=== PATIENT | female | born 1955 | race Caucasian/White ===

== ENCOUNTER 2018-08-03 06:57 | Inpatient (IN) ==
--- OUTSIDE RECORDS SUMMARY | 2018-08-03 07:01 | External Medical Summary | Continuity of Care Document ---
:1955 Author Name Hermann Arias Address Unavailable Unavailable , Care Team Providers Name Role Phone Fely Hernandez DO Unavailable [email or web address] Alia SINGH Unavailable Unavailable Unavailable Unavailable Unavailable Problems Asthma (493.90) (J45.909) Abnormal chest x-ray with multiple lung nodules (793.19) (R9 1.8) Allergies and Adverse Reactions Keflex TABS (Allergy) Maxzide TABS (Allergy) Medications Vitamin D TABS Refills: 0 Benadryl Allergy 25 MG Oral Capsule Refills: 0 Zantac 150 MG TABS Refills: 0 LORazepam 0.5 MG Oral Tablet Refills: 0 Omeprazole 20 MG Oral Capsule Delayed Release; TAKE 1 CAPSUL E DAILY. Refills: 0 Procedures Procedures not documented Immunizations Immunizations not documented Social History - Smoking Status Never smoker Plan of Treatment Planned Observations Planned Goals not documented Results No Known Results Results not documented
--- NOTE | 2018-08-03 08:10 | History & Physical Bridge Note ---
Date of Service August 03, 2018 History & Physical Bridge Note I have examined the patient, reviewed the History & Physical and in the interval since the performance of the History & Physical I have noted the following changes of clinical significance: no changes noted. I have explained the risk benefit and intent of the heart catheterization to the patient including the potential for catheter-based intervention such as balloon angioplasty or intracoronary stent. The patient is willing to proceed.
[2018-08-03] MEDS ORDERED: MIDAZOLAM HCL 1 MG/ML 2ML VIAL ONE (08:11)
[2018-08-03] MEDS ORDERED: fentaNYL citrate 100 MCG/2 ML VIAL ONE (08:12)
[2018-08-03] MEDS ORDERED: NiCARDipine HCL INJ 2.5 MG/ML 10 ML AMP ONE (08:12)
[2018-08-03] MEDS ORDERED: HEPARIN (PORCINE) 1000 UNIT/ML 10 ML (CATH LAB USE ONLY) ONE (08:12)
[2018-08-03] MEDS ORDERED: NITROGLYCERIN/D5W 100MCG/ML 20ML SYR ONE (08:13)
--- NOTE | 2018-08-03 09:52 | Cardiac Catheterization ---
Date of Service August 03, 2018 Cardiac Cath Report Cardiac Cath Report Procedure: 1. Coronary angiography History: This is a 62-year-old female who has been having angina. She had an abnormal exercise stress echocardiogram where her chest pain was reproduced and she had EKG changes as well as findings suggesting inferior wall ischemia. Procedure summary: After informed consent was obtained the patient was taken to the cardiac catheterization lab where access was obtained using a retrograde cylinder technique from the right radial artery. Preformed 5 Grenadian catheters were utilized for the coronary angiography. Unfortunately, I was only able to cannulate the right coronary artery from the radial approach. After multiple attempts, I was not able to cannulate the left coronary artery and therefore a right femoral approach was performed and I was successful in cannulating the left coronary artery and performing coronary angiography. Following the procedure the patient underwent coronary intervention. ACC data: AUC score 9 Start time 8:25 AM End time 9:44 AM Opening aortic pressure 101/58 Closing aortic pressure 122/59 LV pressurevalve not crossed Sedation 2 mg intravenous Versed IV fluids 75 cc normal saline Contrast 85 cc VISI Fluoroscopy time 16.4 minutes Radiation 2924 mGy DAP 23,809 cGy Right dominant system Coronary angiography: Selective injections of the right coronary artery revealed to be dominant. There is mild diffuse disease and then at the bifurcation and into the PDA branch there is a subtotaled stenosis. Selective injections of the left coronary artery revealed the left main trunk to be widely patent. Left circumflex artery has minor luminal irregularities proximally. The left circumflex artery consists of a large first marginal and a second and third marginal supplying the posterior lateral myocardium. The left circumflex artery is widely patent. The LAD is small distally. The LAD gives off several small diagonal branches. The LAD is patent. Summary: The patient has essentially single-vessel coronary artery disease at the bifurcation of the PDA from the right coronary artery. Recommendations: Coronary intervention is recommended.
[2018-08-03] MEDS ORDERED: CLOPIDOGREL BISULFATE 300 MG TAB ONE (10:24)
[2018-08-03] MEDS ORDERED: ONDANSETRON INJ 2 MG/ML 2 ML VIAL IV PRN (10:28)
[2018-08-03] MEDS ORDERED: SODIUM CHLORIDE 0.9% 1000ML 1,000 ML IV SCH (10:30)
[2018-08-03] MEDS ORDERED: LORazepam 0.5 MG TAB PO PRN (10:31)
--- NOTE | 2018-08-03 10:35 | Post Anesthesia Assessment ---
Date of Service August 03, 2018 Post Sedation Assessment Vital Signs Temp Pulse Resp BP Pulse Ox 08/03/18 07:12 36.7 C 60 18 132/73 98 Recovery Score Activity: Moves 4 extremities Respiration: Deep Breath/Cough Circulation: +/-20% PreAnes Value Consciousness: Fully Awake Oxygen Saturation: O2 needed for >90% Discharge Sedation Level of Care: Fast Track Phase II Post Sedation Plan On clinical assessment, the patient appears to have tolerated the sedation without complications. Patient is recovering as anticipated. Patient will continue to be monitored by nursing and may be discharged when sedation discharge criteria are met per below protocol. Upon Completions of procedure and additional 15 minutes continue every 5 minute vital signs and the P.A.R. score; then discharge to a Phase I or Fast Track to Phase II per the following guidelines: * Discharge Patient to appropriate Phase II area if PAR is 8 or greater or return to pre- procedure baseline. The post - procedure orders will be as directed. * If PAR score is less than 8 or not return to pre-procedure baseline then patient will follow Phase I monitoring till PAR is reached for Phase II. The Phase I may be done in procedure room or may call to secure a Phase I area. * If naloxone or flumazenil are used for reversal, hold in Phase I for continued monitoring from when last reversal dose was given for a minimum of 60 minutes or longer pending the nurse and/or physician discretion of patient condition before discharge to Phase II. Please call the Sedation Physician to re-evaluate and complete post-note for discharge to Phase II area. Do NOT discharge from procedure sedation or Phase 1 until post- sedation evaluation note is complete by procedure /sedation MD Sedation Discharge Instructions to be given to the patient at discharge to home.
--- NOTE | 2018-08-03 10:36 | Cardiac Catheterization ---
Cardiac Cath Procedure: Brief Procedure Date August 03, 2018 Pre-Procedure Diagnosis Pre-Procedure Diagnosis: Positive Stress Test AUC Score AUC Score: 7 Post-Procedure Diagnosis Post-Procedure Diagnosis: Severe CAD and Successful PCI Procedure(s) Performed Procedure(s) Performed: Coronary Angiography and Drug Eluting Stent Community Chest Officer Vignesh Bar MD Drafter Electronic(s) [place] Estimated Blood Loss Estimated Blood Loss: 15 Medication(s) Medication(s): Clopidogrel, Fentanyl, Heparin, Nicardipine, Nitroglycerin and Versed Preliminary Findings Successful PCI to distal RCA into R-PDA with single JUANA (2.25 x 18 [place]; post- dilated with 2.5 NC). Recommendations Recommendations: PCI without planned CABG Specimens Specimens: None Drains Drains: none Anesthesia moderate Procedural Complication(s) None Disposition PCU
[2018-08-03] MEDS: ACETAMINOPHEN 325 MG TAB PO PRN ×2 (11:24→20:24)
[2018-08-03] MEDS: SODIUM CHLORIDE 0.9% 1000ML 1,000 ML IV SCH ×2 (11:47→20:24)
[2018-08-03] MEDS ORDERED: Nursing to Pharmacy Communication ONE (13:12)
[2018-08-03] MEDS ORDERED: NON-FORMULARY MEDICATION (Clobetasol 1 APPLN) TOP SCH (14:00)
--- NOTE | 2018-08-03 16:16 | Cardiac Catheterization ---
Cardiac Cath Procedure Full Procedure Date August 03, 2018 Pre-Procedure Diagnosis Pre-Procedure Diagnosis: Positive Stress Test AUC Score AUC Score: 7 Post-Procedure Diagnosis Post-Procedure Diagnosis: Severe CAD and Successful PCI Procedure(s) Performed Procedure(s) Performed: Coronary Angiography and Drug Eluting Stent Associate Professor Of Art Vignesh Bar MD Aviation Safety Technician(s) [place] Estimated Blood Loss Estimated Blood Loss: 15 Medication(s) Medication(s): Clopidogrel, Fentanyl, Heparin, Nicardipine, Nitroglycerin and Versed Summary of Findings Indication: Abnormal stress test Access: 6 Fr right common femoral artery Catheters: AR-1 guide Findings: For full details of patient's coronary angiography please cath report dictated by Dr. Hyatt. Briefly, patient found to have severe single vessel disease including a 90 % stenosis involving the distal RCA/proximal right PDA. Decision to proceed with PCI. -- PCI -- Antithrombotic therapy: Heparin, clopidogrel Procedure: RCA cannulated with AR-1 guide Supervisor [employer] 50 wire passed across lesion into distal vessel PDA lesion predilated with 2.0 compliant balloon Dilated lesion stented with 2.25 x 18 mm Gurley drug-eluting stent Stent post-dilated with 2.5 noncompliant balloon IC vasodilators administered for spasm Post procedure MICHAEL 3 flow, stent well expanded with minimal residual stenosis and no apparent cardiac complications. Arterial Closure: Angio-Seal Summary: 1. Successful PCI to distal RCA into R-PDA with single JUANA (2.25 x 18 [place]; post-dilated with 2.5 NC). Recommendations: To PCU for continued monitoring Loaded with clopidogrel 600 mg in specialist employee labor relations Continue dual-antiplatelet therapy for at least 6 months Continue statin, and ASCVD risk factor modification Consult cardiac Rehab Hemodynamics Rest Ao:: 110/57/79 Final Ao: 100/58/77 LV: -- Recommendations Recommendations: PCI without planned CABG Specimens Specimens: None Radiation Exposure (mGy) 4923 Contrast (mls) 145 Fluids (cc crystalloids) Fluids (cc crystalloids): 125 Drains Drains: none Anesthesia moderate Procedural Complication(s) None Disposition PCU ACC Data: Mobile Ui Designer Cardiac Status Clinical evaluation leading to the procedure CAD Presenation: Positive Stress Test Anginal Classification: CCS III Heart Failure: No Diagnostic Physicians Name: Vignesh Bar MD Status: Elective Closure Device Percutaneous Entry Location: Femoral Closure Device: Angio-Seal Recommendations: PCI without planned CABG PCI Indication: + Stress Test Lesion Segment Name: proximal R-PDA Culprit Artery: Yes Stenosis Prior to Rx (%): 90 Chronic Total Occlusion: No IVUS: No FFR: No Pre-Procedure MICHAEL Flow: 3 Previously Treated Lesion: No Lesion Complexity: Non-High/Non-C Lesion Length (mm): 12 Thrombus Present: No Bifurcation Lesion: Yes Guidewire Across Lesion: Stenosis Post-Procedure (%): 0 Post-Procedure MICHAEL Flow: 3 Devices(s) Deployed: Yes Yes Intraprocedure Events Significant Disection: No Perforation: No
[2018-08-04] MEDS: SODIUM CHLORIDE 0.9% 1000ML 1,000 ML IV SCH (05:25)
[2018-08-04 05:56] LABS: Basophils # (auto) 0.03 K/uL (0-0.2); Basophils % (auto) 0.4 %; Eosinophils # (auto) 0.16 K/uL (0-0.5); Eosinophils % (auto) 2.3 %; Hematocrit (blood only) 39.1 % (37-47); Hemoglobin 13.6 g/dL (12.0-16.0); Immature Granulocytes # (auto) 0.02 K/uL (0.00-0.02); Immature Granulocytes % (auto) 0.3 %; Lymphocytes # (auto) 1.48 K/uL (1.2-3.4); Lymphocytes % (auto) 21.6 %; Mean Corpuscular Hgb Conc 34.8 g/dL (32-36); Mean Corpuscular Volume 86.1 fL (80-100); Mean Platelet Volume 10.4 fL (7.4-10.4); Monocytes # (auto) 0.34 K/uL (0.11-0.59); Neutrophils # (auto) 4.83 K/uL (1.4-6.5); Neutrophils % (auto) 70.4 %; Platelet Count 211 K/uL (130-400); Red Blood Count 4.54 M/uL (4.2-5.4); White Blood Count 6.86 K/uL (4.8-10.8)
[2018-08-04] MEDS ORDERED: CEROVITE ADV FORMULA TAB PO SCH (09:00)
[2018-08-04] MEDS ORDERED: ASPIRIN 81 MG ECTAB PO SCH (09:00)
[2018-08-04] MEDS ORDERED: TRIAMTERENE/HCTZ 37.5/25MG TAB PO SCH (09:00)
[2018-08-04] MEDS ORDERED: ATORVASTATIN 40 MG TAB PO SCH (09:00)
[2018-08-04] MEDS ORDERED: METOPROLOL SUCC 25MG EXT REL TAB PO SCH (09:00)
[2018-08-04] MEDS ORDERED: CLOPIDOGREL BISULFATE 75 MG TAB PO SCH (09:00)
[2018-08-04] MEDS ORDERED: CHOLECALCIFEROL 1,000 UNITS TAB PO SCH (09:00)
[2018-08-04] MEDS ORDERED: PANTOprazole 40 MG TAB PO SCH (09:00)
[2018-08-04] MEDS ORDERED: FEXOFENADINE HCL 180 MG TAB PO SCH (09:00)
[2018-08-04] MEDS ORDERED: SERTRALINE HCL 50 MG TABLET PO SCH (09:00)
[2018-08-04] MEDS: ACETAMINOPHEN 325 MG TAB PO PRN (09:11)
--- NOTE | 2018-08-04 10:48 | Discharge Summary ---
Date of Service August 04, 2018 Principal Diagnosis Principal Diagnosis 1. Chest pain 2. Abnormal exercise stress echocardiogram 3. Coronary artery disease with coronary stent placement distal right coronary artery. Discharge Exam General: no acute distress and stated age Head: normocephalic, no masses, lesions, tenderness or abnormalities Eyes: conjunctiva are pink and non-injected, sclera clear Neck: supple, no adenopathy, no bruits, normal jugular venous pulse, no hepatojugular reflux Chest: normal shape and normal respiratory effort Lungs: clear to auscultation and percussion Cardiac Exam: - regular rate & rhythm, no murmurs gallops or rubs - normal S1, normal S2 Pulses: 2(+) throughout Abdomen: abdomen soft, non-tender, no abnormal masses and no hepatosplenomegaly Musculoskeletal: no gait disturbance, no joint inflammation, no deforming arthritis Extremities: no edema and no cyanosis Neuro: grossly normal exam Discharge Data Allergies Allergy/AdvReac Type Severity Reaction Status Date / Time cephalexin [From Keflex] Allergy Verified 08/03/18 07:22 nitrofurantoin Allergy Verified 08/03/18 07:22 [From Macrobid] Consultations 08/03/18 10:30 Consult Cardiac Rehabilitation Routine Procedures Performed Operation Date: 08/03/18 08:00 Actual Procedures s Cineradiography w/Routine Exam - DO brandi Hinojosa Cath, Coronaries ONLY (no LV) - DO horacio Hinojosa Drug Eluting Stent SGl Vessel - Antoine Bar MD Ordered Studies 08/03/18 06:58 CL Cath Imgs for PACS use only Routine Hospital Course (1) Abnormal stress echocardiogram: The patient underwent a cardiac catheterization that revealed essentially single-vessel coronary artery disease with a subtotal stenosis of the distal right coronary artery at the junction of the PDA. The patient received a drug- eluting stent within the right coronary artery. She had an uneventful postoperative course and can be discharged to outpatient follow-up. (2) Stented coronary artery: Total Time Total Time Spent Total Time Spent (In Minutes): 30 minutes total time spent. 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 Discharge Diagnosis: Coronary artery disease with stent placement right coronary artery Discharge Goals: Decrease discomfort and Improve function Activity: Resume your previous activity Non-emergency contact: Cnc Operator Programmer Call non-emergency contact if: you have any medication questions, your symptoms worsen, your pain is not controlled, your pain is worsening, your pain is unusual for you, your pain is concerning for you, you have a fever, your temperature is above 100.5, your wound has increased redness, your wound has increased drainage and your wound pain has increased Follow-up/Referrals: Emilee Hernandez MD [Primary Care Provider] - Diet: Low Fat Addtl Provider Instructions: ACTIVITY RECOMMENDATIONS: Excess manipulation of the wrist should be avoided for the next 24-48 hours. * No lifting over 2 pounds (approximately a 1/2 gallon of milk) with the utilized arm for 24 hours. * No strenuous activity such as bowling or tennis for 3 days. * Keep the site of the procedure covered with a bandage for 24 hours. *You may shower the day after the procedure. Do not take a tub bath or submerge the puncture site in water for the next 3 days. *Do not operate any motorized equipment for 3 days. SPECIAL CARE INSTRUCTIONS: The site may be slightly bruised and sore following your procedure. Should any of the following occur, contact the Dr. who performed your procedure. 1. Redness/inflammation, swelling, chills, or fever, or colored drainage at procedure site within 3-7 days after your procedure. 2. Coldness, discoloration, ongoing numbness, severe pain, or swelling. Expect mild tingling of hand and tenderness at the puncture site for up to three days. If this persists beyond three days, or other symptoms develop, notify the Dr. who performed your procedure. BLEEDING: If the procedure site on your wrist begins to bleed, do not panic 1. Place 1 or 2 fingers firmly just slightly above the insertion site to stop the bleeding. You may be able to feel your pulse as you hold pressure. 2. Lift your finger after 5 minutes to see if the bleeding has stopped. 3. Once the bleeding has stopped, gently wipe the wrist area clean with a bandage. * If the bleeding from your wrist does not stop after 10 minutes, or if there is a large amount of bleeding or spurting, call 911 (do not drive yourself to the hospital). SKIN IRRITATION: * You may experience some redness and/or swelling in the area where radiation was administered. If any skin irritation occurs, please contact your family physician. FOLLOW UP VISIT: ACTIVITY RECOMMENDATIONS: It is common to feel weak and fatigue for a few days. * Do not drive or operate any motorized equipment for the next three days. * Limit stair usage (2 or 3 trips a day only) for the next three days. * Do not lift anything heavier than 10 pounds for the next three days. * Do not engage in vigorous exercise or any sports for the next five days. * You may shower the day after your procedure, but do not immerse the area for three days. Cleanse the site gently with soap and water. SPECIAL CARE INSTRUCTIONS: * You may replace the pressure dressing or band-aid the morning after the procedure. * After your procedure, it is normal to have a small bruise or small lump at the site. Examine your site daily for any change in the bruise or lump, redness, swelling, drainage or numbness. Notify your doctor if any change. BLEEDING: * If there is a small amount of bleeding at the site, lie down and apply firm pressure with a clean cloth for ten minutes. When the bleeding stops, lie quietly keeping the procedure limb straight for six hours. Notify your doctor as soon as possible. * If the bleeding does not stop after ten minutes or if there is a large amount of bleeding or spurting, call 911 immediately. Continue to lie down and hold firm pressure until help arrives. SKIN IRRITATION: * You may experience some redness and/or swelling in the area where radiation was administered. If any skin irritation occurs, please contact your family physician. FOLLOW UP VISIT: Keep any scheduled doctor appointments. Keep any scheduled doctor appointments. Prescriptions: New acetaminophen [8 Hour Pain Reliever] 650 mg tablet extended release 650 mg PO Q12H MDD 1300 PRN (Reason: fever or pain) Qty: 30 RF: 0 aspirin [Ecotrin Low Strength] 81 mg Tablet,Delayed Release (Dr/Ec) 81 mg PO QAM Qty: 100 RF: 11 pantoprazole 40 mg Tablet,Delayed Release (Dr/Ec) 40 mg PO QAM Qty: 30 RF: 5 clopidogrel 75 mg tablet 75 mg PO QAM Qty: 30 RF: 11 Continued vitamin E 100 unit Capsule 100 unit PO DAILY RF: 0 clobetasol 0.05 % Cream 1 applic TOPICAL TID RF: 0 fexofenadine [Beverley Allergy] 180 mg Tablet 180 mg PO DAILY RF: 0 sulfamethoxazole-trimethoprim 800-160 mg Tablet 1 tab PO BID RF: 0 lorazepam [Ativan] 0.5 mg Tablet 0.5 mg BUCCAL TID PRN (Reason: Anxiety) RF: 0 sertraline [Zoloft] 25 mg Tablet 25 mg PO DAILY RF: 0 triamterene-hydrochlorothiazid [Maxzide-25mg] 37.5-25 mg Tablet 1 cap PO DAILY RF: 0 cholecalciferol (vitamin D3) 1,000 unit Capsule 1,000 unit PO DAILY RF: 0 ocnotfsrrwpc-pzgsgqmq-eogmtqt Capsule 1 cap PO DAILY RF: 0 Sterling 3-6-9 Fatty Acids 400-400-200 mg Capsule 1 cap PO DAILY RF: 0 scrunrxjsar-[id number]-Ltevdiaez serr [Glucosamine Daily Complex] 1,500-400-100 mg-unit-mg Tablet 1 cap PO BID RF: 0 Mirvaso 0.33 % Gel 1 applic TOPICAL DAILY RF: 0 atorvastatin [Lipitor] 40 mg Tablet 1 tab PO DAILY RF: 0 aspirin 81 mg Tablet,Chewable 1 tab PO DAILY RF: 0 metoprolol succinate [Toprol XL] 25 mg Tablet Extended Release 24 Hr 1 tab PO DAILY RF: 0 Discontinued Prilosec OTC 20 mg Tablet,Delayed Release (Dr/Ec) 20 mg PO DAILY RF: 0 Stand-Alone Forms: [facility] Discharge Orders: Discharge Order (Routine); Ordered 08/04/18 Ordered By: Prakash Hyatt Admission Data Admit Date/Time: 08/03/18 10:00 Attending Provider: Praaksh Hyatt Admit Provider: Prakash Hyatt Primary Care Provider: Emilee Hernandez Service: Telemetry Other Pending Studies at Discharge: No
== END 2018-08-04 12:30 | disposition home or self-care (01) | DRG 247 ==
LOC: CC 06:57 → 2S 10:00
PROC: CLB.CCO (2018-08-03 08:00)

== ENCOUNTER 2023-08-28 06:28 | Observation (INO) ==
--- NOTE | 2023-07-29 10:29 | PAT Medication Instructions ---
Medication Instructions Date of Service July 29, 2023 Home Medications Medication Instructions Recorded pantoprazole 40 mg tablet,delayed 40 mg PO QAM #30 tabs 08/04/18 release Medication List: aspirin 81 mg chewable tablet 1 tab PO QAM atorvastatin 40 mg tablet (Lipitor) 2 tab PO QAM fexofenadine 180 mg tablet (Beverley Allergy) 180 mg PO DAILY metoprolol succinate 25 mg tablet,extended release 24 hr (Toprol XL) 1 tab PO QPM sertraline 25 mg tablet (Zoloft) 50 mg PO QAM pantoprazole 40 mg tablet,delayed release 40 mg PO QAM lorazepam 0.5 mg tablet 0.5 mg PO TID PRN Anxiety Lactobacillus 25 billion cell-Bifido 25 billion yndc-NUG-yzoma capsule 1 cap PO QAM calcium carbonate-vitamin D3 600 mg-125 unit tablet 1 tab PO QAM cephalexin 500 mg capsule 500 mg PO BID d-mannose 500 mg capsule 1,000 mg PO BID estradiol 0.01% (0.1 mg/gram) vaginal cream 1 applic vaginal UD ezetimibe 10 mg tablet (Zetia) 10 mg PO QPM lifitegrast 5 % eye drops in a dropperette (Xiidra) 1 drp ophthalmic (eye) BID losartan 25 mg tablet 25 mg PO QAM triamterene 37.5 mg-hydrochlorothiazide 25 mg tablet 1 tab PO UD vitamin B12 500 mcg-folic acid 400 mcg tablet 1 tab PO QAM MEDICATION INSTRUCTIONS: Continue as directed lifitegrast 5 % eye drops in a dropperette (Xiidra) 1 drp ophthalmic (eye) BID cephalexin 500 mg capsule 500 mg PO BID (will finish prior to surgery) estradiol 0.01% (0.1 mg/gram) vaginal cream 1 applic vaginal UD ASK your prescriber and surgeon aspirin 81 mg chewable tablet 1 tab PO QAM DO NOT take the morning of surgery losartan 25 mg tablet 25 mg PO QAM Lactobacillus 25 billion cell-Bifido 25 billion iktk-QMA-vuevs capsule 1 cap PO QAM fexofenadine 180 mg tablet (Beverley Allergy) 180 mg PO DAILY calcium carbonate-vitamin D3 600 mg-125 unit tablet 1 tab PO QAM triamterene 37.5 mg-hydrochlorothiazide 25 mg tablet 1 tab PO UD vitamin B12 500 mcg-folic acid 400 mcg tablet 1 tab PO QAM d-mannose 500 mg capsule 1,000 mg PO BID Take morning of surgery With a small sip of water, OTHERWISE NOTHING TO EAT OR DRINK AFTER MIDNIGHT: atorvastatin 40 mg tablet (Lipitor) 2 tab PO QAM sertraline 25 mg tablet (Zoloft) 50 mg PO QAM pantoprazole 40 mg tablet,delayed release 40 mg PO QAM lorazepam 0.5 mg tablet 0.5 mg PO TID PRN Anxiety Take evening before surgery lorazepam 0.5 mg tablet 0.5 mg PO TID PRN Anxiety ezetimibe 10 mg tablet (Zetia) 10 mg PO QPM d-mannose 500 mg capsule 1,000 mg PO BID metoprolol succinate 25 mg tablet,extended release 24 hr (Toprol XL) 1 tab PO QPM Other Notes If you have any questions please call us at [phone] or [phone] or [phone] or [phone]
--- NOTE | 2023-07-31 11:28 | Anesthesiology Consultation ---
Date of Service July 31, 2023 Assessment & Plan (1) Encounter for pre-operative examination: - Infectious disease screening: Per assessment on 07/29/23: No known infectious disease contacts or current infectious disease symptoms. No noted recent Covid positive test result. - Outpatient joint assessment: Pt currently scheduled for inpatient pathway. If surgeon requests review for outpatient joint pathway, patient is not recommended candidate for outpatient joint program from anesthesia standpoint. - Cardiology visit (07/24/23): "Fluid retention. Reduction in sodium intake advised. Via shared decision-making will add Dyazide only on Mondays, Wednesdays, and Fridays. Follow-up metabolic panel to be obtained in 3 to 4 weeks.. ER evaluation on March 11, 2023 with uncontrolled hypertension, hypertensive urgency, in the setting of chronic knee pain, excessive sodium intake, mild volume overload, E coli UTI, and anxiety/panic.. ASCVD. Status post PCI of the distal RCA in 07/2018. Patent stent, without obstructive disease, via October 2019 catheterization. Continue guideline directed medical management.. Sarcoidosis - No significant cardiac involvement on prior cardiac MRI.. Carotid bruit. June 2021 carotid duplex with stable mild bilateral internal carotid artery disease. Repeat carotid duplex planned in June 2024.. Routine Cardiology follow-up in 6 months or as needed." Chart Review Chart Review: Acceptable Risk for Surgery and Patient seen in Pre Admission Testing Teaching & Discussion Pre-Anesthesia Teaching/Discussion Notes: Instructed NPO after midnight before surgery,except medications with 15 cc of water. Medication instructions provided according to the PAT guidelines. History Surgery Operation Date: 08/14/23 12:05 Proposed Procedures p Right Total Knee Arthroplasty - Endy Smith DO Height/Weight Height: 5 ft 5 in Weight: 110.7 kg Allergies Allergy/AdvReac Type Severity Reaction Status Date / Time No Known Allergies Allergy Verified 07/29/23 08:33 Medications Home Medications Medication Instructions Recorded Confirmed Last Taken aspirin 81 mg chewable tablet 1 tab PO QAM 08/03/18 07/29/23 Unknown atorvastatin 40 mg tablet (Lipitor) 2 tab PO QAM 08/03/18 07/29/23 Unknown fexofenadine 180 mg tablet 180 mg PO DAILY 08/03/18 07/29/23 Unknown (Beverley Allergy) metoprolol succinate 25 mg 1 tab PO QPM 08/03/18 07/29/23 Unknown tablet,extended release 24 hr (Toprol XL) sertraline 25 mg tablet (Zoloft) 50 mg PO QAM 08/03/18 07/29/23 Unknown pantoprazole 40 mg tablet,delayed 40 mg PO QAM #30 tabs 08/04/18 07/29/23 Unknown release lorazepam 0.5 mg tablet 0.5 mg PO TID PRN Anxiety 11/03/19 07/29/23 Unknown Lactobacillus 25 billion 1 cap PO QAM 07/29/23 07/29/23 Unknown cell-Bifido 25 billion [id number] capsule calcium carbonate-vitamin D3 600 1 tab PO QAM 07/29/23 07/29/23 Unknown mg-125 unit tablet cephalexin 500 mg capsule 500 mg PO BID 07/29/23 07/29/23 Unknown d-mannose 500 mg capsule 1,000 mg PO BID 07/29/23 07/29/23 Unknown estradiol 0.01% (0.1 mg/gram) 1 applic vaginal UD 07/29/23 07/29/23 Unknown vaginal cream ezetimibe 10 mg tablet (Zetia) 10 mg PO QPM 07/29/23 07/29/23 Unknown lifitegrast 5 % eye drops in a 1 drp ophthalmic (eye) BID 07/29/23 07/29/23 Unknown dropperette (Xiidra) losartan 25 mg tablet 25 mg PO QAM 07/29/23 07/29/23 Unknown triamterene 37.5 1 tab PO UD 07/29/23 07/29/23 Unknown mg-hydrochlorothiazide 25 mg tablet vitamin B12 500 mcg-folic acid 400 1 tab PO QAM 07/29/23 07/29/23 Unknown mcg tablet Past Medical History Medical History Anxiety CAD (coronary artery disease) 2019- RCA Stent Follows with [facility] cardio Carotid artery stenosis Carotid duplex 06/2021: < 50% B/L ICA stenosis Dry eye syndrome Easy bruising Edema of lower extremity BLE Frequent UTI Currently on abx Follows with urogynecologist GERD (gastroesophageal reflux disease) Hx of colonic polyp Hyperlipidemia Hypertension Osteoarthritis of right knee Sarcoidosis of lymph nodes No current/recent issues Exercise / Class Metabolic Activity II 4-5 Yardwork/Stairs/Walk up hill (one FS: No CP, no SOB) Past Surgical History Surgical History History of bronchoscopy [facility] [place], to confirm Sarcoidosis dx History of surgery of uterus x2, age 40s ("scrapping" and "clipping") Hx of bilateral breast reduction surgery Hx of bladder repair surgery sling Hx of cardiac catheterization 2018- RCA Stent 2019- no stents Hx of colonoscopy with polypectomy Hx of esophagogastroduodenoscopy Hx of heart artery stent 2018- RCA stent Hx of knee surgery Right knee (r/t torn meniscus) Hx of tubal ligation Past Anesthesia History Other (Slow to wake) Daughter: Slow to wake, PONV History of PONV No Hx of Motion Sickness and History of PONV Social History Smoking Status: Never smoker Do You Dip or Chew Tobacco: No Hx Alcohol Use: Yes alcohol intake frequency: holidays/special occasions only Hx Substance Use: No substance use type: does not use Review of Systems Patient denies chest pain, shortness of breath, dyspnea on exertion, fever, chills, cough, wheezing, palpitations. Physical Exam Vital Signs BP 104/67 P 68 TEMP 98.1 SP02 96%RA RESP 18 Physical Full cervical extension range of motion. Full TMJ range of motion. TMD 4 finger breaths Mallampati Score 1 Dentition: intact, + caps (including upper front), + crown Lungs: clear throughout to auscultation Cardiac: regular rate and rhythm, no murmurs noted Spine: normal Carotid arteries: negative bruit Extremities: no LE edema Thick neck Lab Results Anesthesia Preop Results Results Anesthesia Widget: WBC 7.85 K/ul (4.8-10.8) 07/31/23 Hgb 13.1 g/dl (12.0-16.0) 07/31/23 Hct 39.8 % (37.0-47.0) 07/31/23 Plt 222 K/uL (130-400) 07/31/23 Na 139 mmol/L (136-145) 07/31/23 K 4.2 mmol/L (3.5-5.1) 07/31/23 Cl 105 mmol/L (98-107) 07/31/23 CO2 28 mmol/L (21-32) 07/31/23 BUN 17 mg/dl (6-23) 07/31/23 Creat 0.71 mg/dl (0.6-1.2) 07/31/23 Glucose Level 97 mg/dl (70-99(Fasting)) 07/31/23 PT 10.4 Seconds (9.0-12.0) 07/31/23 PTT 26 Seconds (21-31) 07/31/23 INR 0.9 (0.9-1.1) 07/31/23 Blood Type A Negative 07/31/23 Antibody Screen NEGATIVE 07/31/23 Testing Laboratory Results Urine culture (07/27/23): >100,000 colonies/mL E. coli Rx'd Keflex x 7 days on 07/27/23. Patient states symptoms improving as of PAT visit 07/31/23. Advised to contact surgeon/PAT if symptoms not resolved after abx completion. Electrocardiogram Date: 03/11/23 SB at 57bpm. "Otherwise normal ECG" Chest X-Ray Date: 07/31/23 FINDINGS: Cardiac silhouette is enlarged. No pneumothorax, pleural effusion or pulmonary edema. Degenerative changes of the shoulders and spine. IMPRESSION: No acute process. Echocardiogram Date: 07/22/21 LVEF 55-59%. Very mild hypokinesis inferior and posterior wall base with otherwise normal wall motion. Mild AV sclerosis. Valve structures are otherwise normal. Estimated PASP 35-40 mmHg. Stress Test Date: 10/31/19 Stress echo positive for inducible ischemia. Exercise capacity is below average. With stress, abnormal horizontal/downsloping ST depression of 1-2 mm noted in lateral leads. Frequent PVCs with stress. At rest there is severe hypokinesis to akinesis of the basilar inferior and posterior wall. With stress of the apical inferior and posterior pierce and apical septum fail to improve degree of other segments. LVEF 55-59%. Mild MR. 97% MPHR. 6 METS. *Subsequent cardiac cath 11/03/2019 noting widely patent previous stented site with recommendation for continued medical management* Cardiac Catheterization Date: 11/03/19 Coronary angiography: Selective injections of the left coronary artery revealed the left main trunk to be widely patent. The left circumflex artery consists of a small ramus branch and then distally 3 medium to large marginal branches that supply the lateral and posterior myocardium. The left circumflex artery is widely patent. The LAD does extend to the apex of the heart. The LAD gives off several small diagonal branches. The LAD is widely patent. Injections into the right coronary artery reveal it to be dominant. There is a stent at the distal end of the right coronary artery and into the PDA. The stented site is widely patent and the remainder the artery is widely patent. Left ventriculogram: The left ventricle is of normal size with normal systolic function. The mitral valve is competent. The aortic root and ascending aorta have normal morphology and diameter. Summary: The coronary anatomy is widely patent including the previous stented si te in the right coronary artery. LV function is well-preserved. Recommendations: Continued medical management of the patient's coronary artery disease. Other Testing Carotid duplex Date: 06/21/2021 The right vertebral artery demonstrates antegrade flow. The left vertebral artery demonstrates antegrade flow. Right carotid artery duplex examination indicates evidence of less than 50% stenosis of the internal carotid artery. Left carotid artery duplex examination indicates evidence of less than 50% stenosis of the internal carotid artery.
--- NOTE | 2023-08-27 11:29 | History & Physical Report ---
Date of Service August 27, 2023 Assessment & Plan (1) Osteoarthritis of right knee: We will proceed with a right total knee arthroplasty. Postoperatively she will will be started on aspirin for DVT prophylaxis and kept overnight in the hospital for postoperative medical management. She plans to use energy physical therapy upon discharge. History of Present Illness Chief Complaint: Osteoarthritis of the right knee. Primary Care Provider: Emilee Hernandez MD Breana is a pleasant 67-year-old female who has been dealing with chronic increasing right knee pain. It mostly hurts on the lateral aspect of her knee. She has done extensive conservative management. She has done multiple bouts of physical therapy. She has had multiple injections. She continues to deal with lot of knee pain. She cannot live with it the way it is any longer. X-rays and clinical examination have been diagnostic for advanced arthritis of the right knee. After failed conservative treatment, she has elected proceed with a right total knee arthroplasty. Allergies Allergy/AdvReac Type Severity Reaction Status Date / Time No Known Allergies Allergy Verified 07/29/23 08:33 Home Medications Medication Instructions Recorded Confirmed Type aspirin 81 mg chewable tablet 1 tab PO QAM 08/03/18 07/29/23 History atorvastatin 40 mg tablet (Lipitor) 2 tab PO QAM 08/03/18 07/29/23 History fexofenadine 180 mg tablet 180 mg PO DAILY 08/03/18 07/29/23 History (Beverley Allergy) metoprolol succinate 25 mg 1 tab PO QPM 08/03/18 07/29/23 History tablet,extended release 24 hr (Toprol XL) sertraline 25 mg tablet (Zoloft) 50 mg PO QAM 08/03/18 07/29/23 History pantoprazole 40 mg tablet,delayed 40 mg PO QAM #30 tabs 08/04/18 07/29/23 Rx release lorazepam 0.5 mg tablet 0.5 mg PO TID PRN Anxiety 11/03/19 07/29/23 History Lactobacillus 25 billion 1 cap PO QAM 07/29/23 07/29/23 History cell-Bifido 25 billion [id number] capsule calcium carbonate-vitamin D3 600 1 tab PO QAM 07/29/23 07/29/23 History mg-125 unit tablet cephalexin 500 mg capsule 500 mg PO BID 07/29/23 07/29/23 History d-mannose 500 mg capsule 1,000 mg PO BID 07/29/23 07/29/23 History estradiol 0.01% (0.1 mg/gram) 1 applic vaginal UD 07/29/23 07/29/23 History vaginal cream ezetimibe 10 mg tablet (Zetia) 10 mg PO QPM 07/29/23 07/29/23 History lifitegrast 5 % eye drops in a 1 drp ophthalmic (eye) BID 07/29/23 07/29/23 History dropperette (Xiidra) losartan 25 mg tablet 25 mg PO QAM 07/29/23 07/29/23 History triamterene 37.5 1 tab PO UD 07/29/23 07/29/23 History mg-hydrochlorothiazide 25 mg tablet vitamin B12 500 mcg-folic acid 400 1 tab PO QAM 07/29/23 07/29/23 History mcg tablet Past Med/Surg History Problem List Osteoarthritis of right knee Stented coronary artery Abnormal stress echocardiogram Medical History Carotid artery stenosis Carotid duplex 06/2021: < 50% B/L ICA stenosis Easy bruising CAD (coronary artery disease) 2019- RCA Stent Follows with [facility] Dry eye syndrome Osteoarthritis of right knee Hx of colonic polyp Frequent UTI Currently on abx Follows with urogynecologist Edema of lower extremity BLE Anxiety GERD (gastroesophageal reflux disease) Hyperlipidemia Hypertension Sarcoidosis of lymph nodes No current/recent issues Surgical History History of bronchoscopy [facility] [place], to confirm Sarcoidosis dx Hx of esophagogastroduodenoscopy Hx of colonoscopy with polypectomy Hx of heart artery stent 2018- RCA stent Hx of bilateral breast reduction surgery Hx of bladder repair surgery sling History of surgery of uterus x2, age 40s ("scrapping" and "clipping") Hx of knee surgery Right knee (r/t torn meniscus) Hx of tubal ligation Hx of cardiac catheterization 2018- RCA Stent 2019- no stents Social History Smoking Status: Never smoker Second Hand Exposure: No; Do You Dip or Chew Tobacco: No; Tobacco Cessation Education Requested by Patient: No Hx Alcohol Use: Yes Hx Substance Use: No Preferred Language: Central [place] Communication Ability: Effective Community Relations Assistant Required: No Beliefs That Will Affect Care: None Current Living Situation: Spouse Other Information That Helps Us Care for You: No Feels Safe at Home: Yes Safety Concerns: Feels Safe At This Time Assistive Devices: Glasses Review of Systems All systems reviewed & are unremarkable except as noted in HPI & below. Physical Exam On physical examination of the right knee, she has slight valgus deformity. She has tenderness palpation of the distal lateral femoral condyle and over the lateral joint line.. Constitutional WD/WN, vitals as above Eyes PERRL, conjunctivae normal, anicteric sclerae ENMT external ear and nose normal, oropharynx normal Neck trachea midline, no thyromegaly Respiratory normal respiratory effort Cardiovascular RRR, no murmur, no edema Gastrointestinal (Abdomen) normal bowel sounds, soft, nontender, no hepatosplenomegaly Psychiatric A+Ox3, euthymic affect Results & Data Results & Data Laboratory Results . Diagnostic Findings X-rays of the right knee shows advanced osteoarthritis with joint space narrowing, osteophyte formation, and dehs-uy-wumn articulation.. PG Care Time/CCT Total # of Minutes Spent Total Time Spent with Patient: Total time spent is greater than 50% in coordination of care (as documented) at patient's floor/unit and/or counseling patient: Coding Level of Care Code None Diagnoses Osteoarthritis of right knee M17.11
[~2023-08-28 06:28] MED LIST: ACETAMINOPHEN 500 MG TAB PO SCH; FAMOTIDINE 20 MG TAB PO SCH; GABAPENTIN 300 MG CAP PO SCH; LR 500ML BOLUS, THEN 15ML/HR IV SCH; LR 60ML/HR IV SCH; ROPIV 0.5% 246mg, Ketorolac 30mg, EPINEPHrine 0.5mg in NSS INFIL SCH; ROPIVACAINE 0.5% 5 MG/ML 30 ML VIAL ONE; TRANEXAMIC ACID 1,000 MG **IV Intra-op IV SCH; TRANEXAMIC ACID 1,000 MG **IV Pre-op IV SCH; ceFAZolin 2000MG 2,000 MG/15 ML SYR IV SCH; dexAMETHasone**PF** 10 MG/ML VIAL IV SCH
--- NOTE | 2023-08-28 06:29 | History & Physical Bridge Note ---
Date of Service August 28, 2023 History & Physical Bridge Note I have examined the patient, reviewed the History & Physical and in the interval since the performance of the History & Physical I have noted the following changes of clinical significance: no changes noted
[2023-08-28] MEDS ORDERED: LIDOCAINE 2% 2 ML VIAL/AMP(20MG/ML) INFIL ONE (06:51)
[2023-08-28] MEDS ORDERED: PROPOFOL IV EMULSION 10 MG/ML 20 ML VIAL IV ONE (06:51)
[2023-08-28] MEDS ORDERED: MIDAZOLAM HCL 1 MG/ML 2ML VIAL ONE (06:51)
[2023-08-28] MEDS ORDERED: fentaNYL citrate PF 100 MCG/2 ML VIAL ONE (06:51)
[2023-08-28] MEDS: ACETAMINOPHEN 500 MG TAB PO SCH ×2 (07:13→21:57)
[2023-08-28] MEDS: dexAMETHasone**PF** 10 MG/ML VIAL IV SCH (07:13)
[2023-08-28] MEDS: GABAPENTIN 300 MG CAP PO SCH (07:13)
[2023-08-28] MEDS: FAMOTIDINE 20 MG TAB PO SCH (07:13)
[2023-08-28] MEDS: LR 60ML/HR IV SCH (07:14)
[2023-08-28] MEDS: LR 500ML BOLUS, THEN 15ML/HR IV SCH (07:14)
[2023-08-28] MEDS ORDERED: ATROPINE SULFATE 0.1 MG/ML 10ML SYR IV PRN (07:45)
[2023-08-28] MEDS ORDERED: ePHEDrine sulfate 50 MG/ML AMP IV PRN (07:45)
[2023-08-28] MEDS ORDERED: fentaNYL citrate PF 100 MCG/2 ML VIAL IV PRN (07:45)
[2023-08-28] MEDS ORDERED: HYDROmorphone INJ 1 MG/ML SYRINGE IV PRN (07:45)
[2023-08-28] MEDS ORDERED: ONDANSETRON INJ 2 MG/ML 2 ML VIAL IV PRN ×2 (07:45→13:55)
[2023-08-28] MEDS: TRANEXAMIC ACID 1,000 MG **IV Pre-op IV SCH (07:48)
[2023-08-28] MEDS: ceFAZolin 2000MG 2,000 MG/15 ML SYR IV SCH ×2 (08:04→16:05)
[2023-08-28] MEDS ORDERED: ROCURONIUM BROMIDE 10 MG/ML 5 ML VIAL IV ONE (08:23)
[2023-08-28] MEDS ORDERED: ONDANSETRON INJ 2 MG/ML 2 ML VIAL ONE (08:23)
[2023-08-28] MEDS ORDERED: HYDROmorphone INJ 2 MG/ML SYR/VIAL ONE (08:34)
[2023-08-28] MEDS: ROPIV 0.5% 246mg, Ketorolac 30mg, EPINEPHrine 0.5mg in NSS INFIL SCH (08:49)
[2023-08-28] MEDS ORDERED: SUGAMMADEX SODIUM 200 MG/2 ML VIAL IV ONE (09:01)
[2023-08-28] MEDS: TRANEXAMIC ACID 1,000 MG **IV Intra-op IV SCH (09:05)
--- NOTE | 2023-08-28 09:10 | Operative Report ---
PG Post Operative Report Pre & Post Diagnosis Operation Date: 08/28/23 08:00 Pre-Op Diagnosis: Degenerative Joint Disease Knee Right Post-Op Diagnosis: Degenerative Joint Disease Knee Right I identified the patient and participated in the time-out.: Yes Procedure Operation Date: 08/28/23 08:00 Actual Procedures p Right Total Knee Arthroplasty(Right) - Endy Smith DO Surgeon Endy Smith DO Sign Language Instructor Endy Michael PA-C Estimated Blood Loss 30 Findings Consistent with Post-Op Diagnosis Specimens Right femoral and tibial bone Description of Procedure Implants used: I used a Navid Persona total knee arthroplasty system with a size 8 standard PS femur, D tibia, 34 oval patella, and a size 14 CPS polyethylene bearing. All components were cemented in place with Biomet cement. Breana arrived [facility] for the above procedure. She was seen in the preoperative holding area and the operative extremity was identified and signed. She was given a preoperative antibiotic, TXA, a spinal anesthetic and an adductor nerve block. She was taken back to the operating room and laid on the table in supine position. She was given basic sedation. The operative knee was then prepped and draped in sterile fashion. A timeout was done, and the patient and the operative extremity was properly identified. A midline incision was made directly over the patella. Dissection was taken down to the extensor mechanism. A midvastus arthrotomy was used. The medial retinaculum was released and the fat pad was mostly excised. The knee was flexed and the ACL, PCL, and meniscus were removed. A drill was sent down the center of the femoral canal followed by an intramedullary ramonita. Off that ramonita a distal femoral cutting block was placed. 9 mm was resected off the distal femur at 5 of valgus. A posterior referencing AP sizing guide was then placed on the distal femur. The femur measured to be a size 8. 2 drill holes were placed in 3 of external rotation. A 4-in-1 cutting block was then impacted into place. Anterior, posterior, and chamfer cuts were then made. The proximal tibia was then exposed. An external tibial alignment guide was placed. A tibial cut guide was then anchored in place and the proximal tibia was then resected. The posterior aspect of the knee was then opened up and any additional meniscus fragments and osteophytes were removed. The tibia measured to be a size D. The tibial plate was then placed in the appropriate rotation and the tibia was drilled and punched. Trial components were then placed. I used a size 14 CPS polyethylene insert. The knee was brought through a full range of motion and felt to be stable. The peg holes for the femoral component were then drilled. The patella was then everted and 9 mm was resected off the posterior aspect of the patella. The patella measured to be a size 34 oval. 3 peg holes were then drilled. A trial patella was placed. The knee was once again brought through a full range of motion and felt to be stable. Trial components were then removed. The surrounding soft tissues were injected with 100 cc of an orthopedic pain control cocktail. All components were then cemented into place with Biomet cement. The final polyethylene insert was then snapped into place. Once cement was dry the tourniquet was deflated. Hemostasis was obtained. A dilute betadyne lavage was then done for 3 minutes. The joint was then irrigated with normal saline solution. The midvastus arthrotomy was then closed with #1 Vicryl suture. The skin was closed with 2-0 Vicryl, 3-0V lock suture, and dona. A soft compressive dressing was placed. She was then transferred to a hospital bed and taken to the postanesthesia care unit in stable condition. She tolerated the procedure well. Endy Michael PA-C, was present for the entire procedure. He was critical for patient positioning, prepping, draping, retraction exposure, wound closure and application of sterile dressing. I attest to the content of the Intraoperative Record and any orders documented therein. Any exceptions are noted below.
--- NOTE | 2023-08-28 10:19 | Anesthesiology Progress Note ---
Date of Service August 28, 2023 Anesthesia Post Procedure Vital Signs Vital Signs: Temp Pulse Pulse Resp BP Pulse Ox O2 Del Method 08/28/23 10:00 77 19 132/79 97 Oxymask 08/28/23 09:50 80 17 147/81 H 95 Oxymask 08/28/23 09:40 82 19 137/83 94 Oxymask 08/28/23 09:33 36.0 C L 86 21 148/81 H 95 Oxymask 08/28/23 07:06 36.6 C 68 20 145/70 H 96 Room Air O2 Flow Rate 08/28/23 10:00 10 08/28/23 09:50 10 08/28/23 09:40 10 08/28/23 09:33 10 08/28/23 07:06 Transfer of Care Handoff Completed per policy Notes Mental Status: alert / awake / arousable and participated in evaluation Patient Amnestic to Procedure: Yes Nausea / Vomiting: adequately controlled Pain: adequately controlled Airway Patency, RR, SpO2: stable & adequate BP & HR: stable & adequate Hydration State: stable & adequate Anesthetic Complications: no major complications apparent and Pt Satisfied with anesthetic care
--- NOTE | 2023-08-28 11:16 | XRay Report ---
XR knee RT 1 or 2V routine CLINICAL HISTORY: Surgical Post Op TECHNIQUE: 2 views of the right knee were obtained. Comparison: Comparison is made to MRI knee 11/17/2007 FINDINGS: Patient is status post total knee arthroplasty with expected postsurgical changes including soft tiss ue swelling and subcutaneous emphysema. No periarticular lucency or hardware fracture is seen. IMPRESSION: Expected postoperative appearance status post placement of total knee arthroplasty. ACT 112: Negative or not required by law. Electronically signed by: Aubrey Morales M.D. 08/28/2023 11:15 AM
[2023-08-28] MEDS ORDERED: bisacodyL 10 MG SUPP PR PRN (13:55)
[2023-08-28] MEDS ORDERED: LORazepam 0.5 MG TAB PO PRN (13:55)
[2023-08-28] MEDS ORDERED: MAGNESIUM HYDROXIDE SUSP 30 ML UDC PO PRN (13:55)
[2023-08-28] MEDS ORDERED: NALOXONE HCL 0.4 MG/1 ML VIAL/CARP IV PRN (13:55)
[2023-08-28] MEDS ORDERED: HYDROmorphone INJ 0.5 MG/0.5 ML SYR IV PRN (13:55)
[2023-08-28] MEDS ORDERED: METOCLOPRAMIDE HCL INJ 5 MG/ML 2 ML VIAL IV PRN (13:55)
[2023-08-28] MEDS ORDERED: NON-FORMULARY MEDICATION (Estradiol 0.01 % (0.1 mg/gram) cream) PV SCH (13:55)
[2023-08-28] MEDS: ORTHO JOINT ANESTHETIC ONE (14:05)
[2023-08-28] MEDS: SODIUM CHLORIDE 0.9% 1,000 ML IV SCH (16:04)
[2023-08-28] MEDS: KETOROLAC TROMETHAMINE 15 MG/ML VIAL IV SCH (16:04)
[2023-08-28] MEDS: TRIAMTERENE/HCTZ 37.5/25MG TAB PO SCH (16:50)
[2023-08-28] MEDS: SENNA 8.6 MG TAB PO SCH (20:29)
[2023-08-28] MEDS: METOPROLOL SUCC 25MG EXT REL TAB PO SCH (20:31)
[2023-08-28] MEDS ORDERED: ARTIFICIAL TEARS OP PRN (21:00)
[2023-08-28] MEDS: ASPIRIN 81 MG ECTAB PO SCH (21:55)
[2023-08-28] MEDS: DOCUSATE SODIUM 100 MG CAP PO SCH (21:56)
[2023-08-28] MEDS: EZETIMIBE 10 MG TAB PO SCH (21:56)
--- OUTSIDE RECORDS SUMMARY | 2023-08-29 07:31 | External Medical Summary | Summary of Care ---
Author Name Unknown Organization [facility] Address [address] [facility] [place] [address] Phone [phone] Care Team Providers Care Technical Marketing Engineer Name Role Phone Shilpa De Luna Primary Care Provider + Reason for Visit * Reason Onset Date Comments Advice 08/12/2023 Encounter Details Date Type Department Care Team (Late st Contact Info) Description 08/12/2023 Telephone Urogynecology [facility] [address] [place] [id number] Gómez Becker MD [address] [employer] [place] [address] Advice Allergies Active Allergy Reactions Criticality Noted Date Comments Cephalexin Hives Medium 08/28/2011 documented as of this encounter (statuses as of 08/12/2023) Medications Medication Sig Dispensed Refills Start Date End Date Status fexofenadine (MARIAN) 180 MG Tablet Take 1 Tablet by mouth in the morning. 0 Active Aspirin 81 MG Tablet Take 1 Tab by mouth daily. 34 Tab 5 08/02/2018 Active CPAP every night at bedtime. 0 Active Nitroglycerin 0.4 MG Sublingual Tablet Sublingual (Nitrostat) Place under the tongue 1 Tablet every 5 minutes as needed for Pain, Chest. Up to 3 in 15 minutes. 25 Tablet 11 12/19/2021 Active Additional Information Patient not taking.Reported on 02/19/2023 Nystatin-Triamcinolon e 141652-8.1 UNIT/GM-% External Cream (Mycolog) 0 07/17/2022 Active Probiotic Product Oral Capsule Take 1 Capsule by mouth in the morning. 0 Active D-Mannose 350 MG Oral Capsule Take 1 Capsule by mouth in the morning and 1 Capsule before bedtime. 0 Active Clobetasol Propionate 0.05 % External Cream (Temovate)Indications :Cutaneous sarcoidosis Apply topically to affected area 2 times a day. To affected area for up to two weeks. 15 g 1 09/18/2022 Active Losartan Potassium 25 MG Oral Tablet (Cozaar)Indications:A therosclerosis of [place] coronary artery of [place] heart without angina pectoris,PVC (premature ventricular contraction),HTN, goal below 140/90 TAKE 1 TABLET BY MOUTH IN THE MORNING 90 Tablet 3 12/01/2022 Active Metoprolol Succinate ER 25 MG Oral Tablet Extended Release 24 Hour (toPROL XL)Indications:PVC (premature ventricular contraction) TAKE 1 TABLET BY MOUTH DAILY 90 Tablet 3 12/09/2022 Active Pantoprazole Sodium 40 MG Oral Tablet Delayed Release (Protonix)Indications :Gastroesophageal reflux disease, unspecified whether esophagitis present TAKE 1 TABLET BY MOUTH DAILY 90 Tablet 3 01/08/2023 Active Diclofenac Sodium 1 % External Gel (Voltaren) Apply topically to affected area 4 times a day. Apply to tender areas right knee 150 g 6 02/23/2023 Active Ondansetron 4 MG Oral Tablet Disintegrating (Zofran) Place 1 Tablet on tongue every 8 hours as needed for Nausea. dissolve on tongue. 20 Tablet 0 03/11/2023 Active Additional Information Patient not taking.Reported on 07/24/2023 Xiidra 5 % Ophthalmic Solution Instill 0.2 mL into eye in the morning and 0.2 mL before bedtime. 0 05/04/2023 Active Atorvastatin Calcium 80 MG Oral Tablet (Lipitor)Indications: Atherosclerosis of [place] coronary artery of [place] heart without angina pectoris TAKE 1 TABLET BY MOUTH DAILY 90 Tablet 3 07/07/2023 Active Ezetimibe 10 MG Oral Tablet (Zetia)Indications:Fa tty liver,Atherosclerosis of [place] coronary artery of [place] heart without angina pectoris,Dyslipidemia , goal LDL below 70 TAKE 1 TABLET BY MOUTH ONCE DAILY 90 Tablet 3 07/23/2023 Active Sertraline HCl 50 MG Oral Tablet (Zoloft)Indications:G AD (generalized anxiety disorder) TAKE 1 TABLET BY MOUTH ONCE DAILY 90 Tablet 0 07/23/2023 Active Triamterene-HCTZ 37.5-25 MG Oral Tablet ((Maxzide-25))Indicat ions:HTN, goal below 140/90,Fluid retention Take 1 Tablet by mouth once a day on Thursday, Thursday, and Thursday only. 15 Tablet 5 07/24/2023 Active Estradiol 0.1 MG/GM Vaginal Cream (Estrace) Apply pea sized amount (0.5 gm) vaginally twice a week at bedtime 42.5 g 3 07/27/2023 Active LORazepam 0.5 MG Oral Tablet (Ativan)Indications:G AD (generalized anxiety disorder) Take 1 Tablet by mouth every 6 hours as needed for Anxiety. 30 Tablet 0 08/05/2023 Active Vitamin B-12 500 MCG Oral Lozenge Take 1 Tablet by mouth in the morning. 0 Active Calcium Carb-Cholecalciferol 600-5 MG-MCG Oral Tablet (Calcium + Vitamin D3) Take 1,200 mg by mouth in the morning. 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 Post-menopausal 09/11/2020 Atherosclerotic heart diseas e of [place] coronary artery with other forms of angina pectoris 08/14/2020 Gastroesophageal reflux disease 08/14/2020 Class 3 severe obesity due t o excess calories without serious comorbidity with body mass index (BMI) of 40.0 to 44.9 in adult 07/26/2020 History of actinic keratoses 01/31/2020 PVC (premature ventricular contraction) 10/13/19 19 Prediabetes 09/13/2018 Overview: Per Prediabetes protocol DAMON on CPAP 08/17/2018 Atherosclerosis of [place] co ronary artery of [place] heart without angina pectoris 08/17/2018 MATTHEW (generalized anxiety disorder) 12/15/2017 Encounter for gynecological examination with abnormal finding 03/25/2016 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 Kayla Templeton Fatty liver documented as of this encounter (statuses as of 08/12/2023) Resolved Problems Problem Noted Date Diagnosed Date Resolved Date Body mass index (BMI) of 40. 0 to 44.9 in adult 02/13/2020 08/14/2020 Overview: Per Obesity protocol documented as of this encounter (statuses as of 08/12/2023) Immunizations Name Administration Dates Next Due COVID-19 mRNA, LNP-s, No Pre serve, 2-Dose Series (Moderna) 06/21/2020,05/12/2020 COVID-19, mRNA, LNP-s, PF, B ooster, 100mcg/0.5mg (Moderna) 03/06/2022,09/11/2021,02/06/2021 Pneumococcal Conjugate Vacc, 13 Valent (Prevnar) 06/28/2021 Pneumococcal Polysaccharide PPV23 (Pneumovax) 08/07/2022 Seasonal Influenza, PF, 6 M & above, IM , (FluLaval or Fluzone) 12/20/2019,01/31/2019,01/14/2018,02/03 Seasonal Influenza, Quadriva lent Hd (Fluzone Hd) 02/11/2023,03/05/2021 Seasonal Influenza, Trivalen t, High Dose, No Preserve, IM 02/11/2022 TD, Preservative Free 10/30/2021 TDAP (age 10 and older)(Boostrix) 09/18/2009 Zoster Vaccine Recombinant (Shingrix) 09/30/2019 ,06/02/2019 documented as of this encounter Social History Tobacco Use Types Packs/Day Years Used Date Smoking Tobacco: Never Smokeless Tobacco: Never Alcohol Use Standard Drinks/Week Comments Yes 0 (1 standard drink = 0.6 oz pur e alcohol) occasional PHQ-2 Answer Date Recorded PHQ Adult Total Score 0 08/05/2023 Hunger Vital Sign Answer Date Recorded Within the past 12 months, y ou worried that your food would run out before you got the money to buy more. Never true 08/05/19 24 Within the past 12 months, t he food you bought just didn't last and you didn't have money to get more. Never true 08/05/2023 Sex and Gender Information Value Date Recorded Sex Assigned at Female 06/11/2022 11:59 AM EST Gender Identity Female 06/11/2022 11:59 AM EST Sexual Orientation Straight 06/11/2022 11 :59 AM EST Job Start Date Occupation Industry Not on file Not on file Not on file documented as of this encounter Miscellaneous Notes * Telephone Encounter - Kianna Young LPN - 08/12/2023 11:43 AM EDT Call placed to advise pt orders were placed for UA and culture to leave a sample at nearest [facility] lab. Pt asking for abx if anything is seen on UA while culture results are pending because pt is afraid her total knee replacement will be cancelled. I advised pt to call her Ortho Dr and ask them to be sure. Advised pt a message would be sent to provider regarding abx. * Telephone Encounter - Gómez Becker MD - 08/12/2023 11:27 AM EDT Yes, please put in an order for urine culture. Thanks * Telephone Encounter - Kianna Young LPN - 08/12/2023 10:17 AM EDT Patient left message noting she gets frequent UTIs amd her urine has been becoming cloudy since 08/10/23. Keflex was just finished last week and is worried she will not be able to have her total knee replacement surgery this Thursday. Included note to previous call from pt. Routed to provider and Lydiato advise. * Telephone Encounter - Jeana Connors LPN - 08/12/2023 8:52 AM EDT Patient called with c/o urine becoming cloudy, frequency, not feeling pressure, some pain in the pelvic area. Finished cephalexin last and was doing better. She is concerned she has knee replacement scheduled Anthony and is concerned it may be cancelled due to infection being untreated. Asking if treatment can be sent for her. Will have Dr. Becker review. documented in this encounter Plan of Treatment Upcoming Encounters Date Type Department Care Team (Late st Contact Info) Description 09/07/2023 8:00 AM EDT Telemedicine Urogynecology [facility] [address] [facility] [place] [address] Gómez Becker MD [address] [place] [address] 12/22/2023 10:00 AM EDT Office Visit [facility] [address] [place] [address] Shilpa De Luna CRNP [address] [place], [place] [phone] 02/01/2024 9:30 AM EDT Office Visit Cardiology, [facility] [address] [place] [address] Shawn Michelle PACarolynC [address] [place] [address] 04/04/2024 2:00 PM EST Office Visit Dermatology [facility] [address] [facility] [place] [facility] [place] [address] Kendall Bhakta MD [address] [facility] [place] [address] Scheduled Orders Name Type Priority Associated Diagnoses Orde r Schedule URINALYSIS, REFLEX TO MICROSCOPIC Lab Routine Dysuria Expected: 08/12/2023 (Approximate), Expires: 09/12/2023 CULTURE, URINE, QUANTITATIVE Lab Routine Dysuria Expected: 08/12/2023 (Approximate), Expires: 09/12/2023 Health Maintenance Due Date Last Done Comments Cologuard 09/13/2000 Sigmoidoscopy 09/13/2000 Fecal Occult Blood Test 06/16/2018 06/16/2017, 03/25 COVID-19 Vaccine ( season) 2022 03/06/2022, 09/11/2021, 02/06/2021, Additional history exists HbA1c 12/11/2023 12/10/2022, 06/04, 09/03/2018 Mammogram 02/26/2024 02/25/2023, 12/06, 01/01/2022, Additional history exists Depression Screening 08/04/2024 08/05/2023 DXA Scan 10/02/2027 10/01/2020 Colonoscopy 05/03/2030 05/03/2020, 05/02/2009 Colorectal Cancer Screening 05/03/2030 DTaP,Tdap,and Td Vaccines (3 - Td or Tdap) 10/31/2031 10/30/2021, 09/18/2009 Hepatitis C Screening Completed 06/15/2018 Zoster Vaccines Completed 09/30/2019, 06/02/2019 Pap Smear Discontinued 11/21/2019, 03/25/2016 Pneumococcal Vaccine: 65+ Years Completed 08/07/2022, 06/28/2021 Influenza Vaccine (FLU shot) Completed 02/11/2023, 02/11/2022, 03/05/2021, Additional history exists GARDASIL-HPV IMMUNIZATION SERIES Aged Out No longer eligible based on patient's age to complete this topic Hepatitis B Aged Out No longer eligi ble based on patient's age to complete this topic MENINGOCOCCAL (MENACTRA/MENVEO) Aged Out No longer eligible based on patient's age to complete this topic documented as of this encounter Medical Devices Not on filedocumented as of this encounter Visit Diagnoses Diagnosis Dysuria- Primary documented in this encounter Advance Directives Latest Code Status on File Code Status Date Activated Date Inactivated Comments Full Code 09/16/2011 6:33 PM 09/17/2011 2:57 PM This order reflects the patients wishes and were consensually agreed upon. Question Answer Comments Discussion of Advance Directives occurred with: Not Discussed Does the patient have a Living Will? No Does the patient have Health Care Power of Student Services Coordinator? No Care Teams Technical Marketing Engineer Relationship Specialty Start Date End Date Shilpa De Luna CRNP [address] [place] [address] PCP - General Nurse Practitioner 08/05/23 documented as of this encounter
--- OUTSIDE RECORDS SUMMARY | 2023-08-29 07:31 | External Medical Summary | Summary of Care ---
Author Name Unknown Organization [facility] Address [address] [place] [address] Phone [phone] Care Team Providers Care [place] Department Manager Name Role Phone Shilpa De Luna Primary Care Provider + Reason for Visit * Reason Comments Outpatient Testing Encounter Details Date Type Department Care Team (Late st Contact Info) Description 08/12/2023 12:30 PM EDT Laboratory Laboratory Patient Service [address] [phone] [facility] [address] [place] [id number] Dysuria Allergies Active Allergy Reactions Criticality Noted Date [...] Patient not taking.Reported on 02/19/2023 Nystatin-Triamcinolon e 454386-7.1 UNIT/GM-% External Cream (Mycolog) 0 07/17/2022 Active [...] 25 MG Oral Tablet (Cozaar)Indications:A therosclerosis of [place] coronary artery of [place] heart without angina pectoris,PVC (premature ventricular contraction),HTN, [...] 80 MG Oral Tablet (Lipitor)Indications: Atherosclerosis of [place] coronary artery of [place] heart without angina pectoris TAKE 1 TABLET BY MOUTH DAILY 90 Tablet 3 07/07/2023 Active Ezetimibe 10 MG Oral Tablet (Zetia)Indications:Fa tty liver,Atherosclerosis of [place] coronary artery of [place] heart without angina pectoris,Dyslipidemia , goal LDL [...] Post-menopausal 09/11/2020 Atherosclerotic heart diseas e of [place] coronary artery with other forms of angina pectoris 08/14/2020 Gastroesophageal reflux disease 08/14/2020 Class 3 severe obesity due t o excess calories without serious comorbidity with body mass index (BMI) of 40.0 to 44.9 in adult 07/26/2020 History of actinic keratoses 01/31/2020 PVC (premature ventricular contraction) 10/13/19 19 Prediabetes 09/13/2018 Overview: Per Prediabetes protocol DAMON on CPAP 08/17/2018 Atherosclerosis of [place] co ronary artery of [place] heart without angina pectoris 08/17/2018 MATTHEW (generalized [...] on file documented as of this encounter Plan of Treatment Upcoming Encounters Date Type Department Care Team (Late st Contact Info) Description 09/07/2023 8:00 AM EDT Telemedicine Urogynecology [facility] [address] [facility] [place] [address] Gómez Becker MD [address] [place] [address] 12/22/2023 10:00 AM EDT [facility] [address] [place] [address] Shilpa De Luna CRNP [address] [place] [address] 02/01/2024 9:30 AM EDT Office Visit Cardiology, [facility] [address] [facility] [place] [address] Shawn Michelle PA-C [address] [facility] [place] [address] 04/04/2024 2:00 PM EST Office Visit Dermatology [facility] [address] [facility] [place] [address] Kendall Bhakta MD [address] [facility] [place] [address] Pending Results Name Type Priority Associated Diagnoses Date /Time URINALYSIS, REFLEX TO MICROSCOPIC Lab Routine Dysuria 08/12/2023 12:38 PM EDT CULTURE, URINE, QUANTITATIVE Lab Routine Dysuria 08/12/2023 12:38 PM EDT Health Maintenance Due Date Last Done Comments [...] as of this encounter Visit Diagnoses Diagnosis Dysuria documented in this encounter Advance Directives Latest [...] the patient have Health Care Power of Automatic Buffer? No Care Teams Harbor Department Manager Relationship Specialty Start Date End Date Shilpa De Luna CRNP [address] [place] [address] PCP - General Nurse Practitioner 08/05/23 documented as of this encounter
--- OUTSIDE RECORDS SUMMARY | 2023-08-29 07:31 | External Medical Summary | Summary of Care ---
Author Name Unknown Organization [facility] Address [address] [place] [address] Phone [phone] Care Team Providers Care Collections Manager Name Role Phone CalixtoShilpa gaitan Nena POWERS Primary Care Provider + Reason for Visit * Reason Comments Follow Up Encounter Details Date Type Department Care Team (Late st Contact Info) Description 08/14/2023 10:00 AM EDT Office Visit Gynecology Urology, John [address] [place], [place] [id number] Breana Quinones MD [address], [place] [id number] Nurse John [facility] [address] [place], [place] [phone] Recurrent UTI*; Postmenopausal atrophic vaginitis; Urge incontinence of urine Allergies No known active allergiesdocumented as of this encounter (statuses as of 08/18/2023) Medications Medication Sig Dispensed Refills Start Date [...] Additional Information Patient not taking.Reported on 02/19/2023 Nystatin-Triamcinolo ne 944574-9.1 UNIT/GM-% External Cream (Mycolog) 0 07/17/2022 Active Probiotic Product Oral Capsule Take 1 Capsule by mouth in the morning. 0 Active D-Mannose 350 MG Oral Capsule Take 1 Capsule by mouth in the morning and 1 Capsule before bedtime. 0 Active Clobetasol Propionate 0.05 % External Cream (Temovate)Indication s:Cutaneous sarcoidosis Apply topically to affected area 2 times a day. To affected area for up to two weeks. 15 g 1 09/18/2022 Active Losartan Potassium 25 MG Oral Tablet (Cozaar)Indications: Atherosclerosis of [place] coronary artery of [place] heart without angina pectoris,PVC (premature ventricular contraction),HTN, goal below 140/90 TAKE 1 TABLET BY MOUTH IN THE MORNING 90 Tablet 3 12/01/2022 Active Metoprolol Succinate ER 25 MG Oral Tablet Extended Release 24 Hour (toPROL XL)Indications:PVC (premature ventricular contraction) TAKE 1 TABLET BY MOUTH DAILY 90 Tablet 3 12/09/2022 Active Pantoprazole Sodium 40 MG Oral Tablet Delayed Release (Protonix)Indication s:Gastroesophageal reflux disease, unspecified whether esophagitis present TAKE [...] Active Atorvastatin Calcium 80 MG Oral Tablet (Lipitor)Indications :Atherosclerosis of [place] coronary artery of [place] heart without angina pectoris TAKE 1 TABLET BY MOUTH DAILY 90 Tablet 3 07/07/2023 Active Ezetimibe 10 MG Oral Tablet (Zetia)Indications:F atty liver,Atherosclerosi s of [place] coronary artery of [place] heart without angina pectoris,Dyslipidemi a, goal LDL below 70 TAKE 1 TABLET BY MOUTH ONCE DAILY 90 Tablet 3 07/23/2023 Active Sertraline HCl 50 MG Oral Tablet (Zoloft)Indications: MATTHEW (generalized anxiety disorder) TAKE 1 TABLET BY MOUTH ONCE DAILY 90 Tablet 0 07/23/2023 Active Triamterene-HCTZ 37.5-25 MG Oral Tablet ((Maxzide-25))Indica tions:HTN, goal below 140/90,Fluid retention Take 1 Tablet by mouth once a day on Thursday, Thursday, and Thursday only. 15 Tablet 5 07/24/2023 Active Estradiol 0.1 MG/GM Vaginal Cream (Estrace) Apply pea sized amount (0.5 gm) vaginally twice a week at bedtime 42.5 g 3 07/27/2023 Active LORazepam 0.5 MG Oral Tablet (Ativan)Indications: MATTHEW (generalized anxiety disorder) Take 1 Tablet by mouth every 6 hours as needed for Anxiety. 30 Tablet 0 08/05/2023 Active Vitamin B-12 500 MCG Oral Lozenge Take 1 Tablet by mouth in the morning. 0 Active Calcium Carb-Cholecalciferol 600-5 MG-MCG Oral Tablet (Calcium + Vitamin D3) Take 1,200 mg by mouth in the morning. 0 Active Sulfamethoxazole-Tri methoprim 800-160 MG Oral Tablet (Bactrim DS) Take 1 Tablet by mouth in the morning and 1 Tablet before bedtime. Do all this for 10 days. For 10 days.. 20 Tablet 0 08/13/2023 08/23/2023 Active Trimethoprim 100 MG Oral Tablet (Proloprim) Take 1 Tablet by mouth every night at bedtime. 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 Post-menopausal 09/11/2020 Atherosclerotic heart diseas e of [place] coronary artery with other forms of angina pectoris 08/14/2020 Gastroesophageal reflux disease 08/14/2020 Class 3 severe obesity due t o excess calories without serious comorbidity with body mass index (BMI) of 40.0 to 44.9 in adult 07/26/2020 History of actinic keratoses 01/31/2020 PVC (premature ventricular contraction) 10/13/19 19 Prediabetes 09/13/2018 Overview: Per Prediabetes protocol DAMON on CPAP 08/17/2018 Atherosclerosis of [place] co ronary artery of [place] heart without angina pectoris 08/17/2018 MATTHEW (generalized anxiety disorder) 12/15/2017 Encounter for gynecological examination with abnormal finding 03/25/2016 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 Kayla Templeton Fatty liver documented as of this encounter (statuses as of 08/18/2023) Resolved Problems Problem Noted Date Diagnosed Date Resolved Date Body mass index (BMI) of 40. 0 to 44.9 in adult 02/13/2020 08/14/2020 Overview: Per Obesity protocol documented as of this encounter (statuses as of 08/18/2023) Immunizations Name Administration Dates Next Due COVID-19 [...] Date Smoking Tobacco: Never Smokeless Tobacco: Never Tobacco Cessation:Counseling Given: No Alcohol Use Standard Drinks/Week Comments Yes 0 [...] on file documented as of this encounter Progress Notes * Breana Quinones MD - 08/14/2023 10:20 AM EDT Breana Gasca presents for a follow up visit at [facility]. She was previously seen for Z87.440 History of recurrent UTI (urinary tract infection) (primary encounter diagnosis) Since last seen, she reports having 2 UTI's. Most recently, took Bactrim which helped, but after 2 weeks, now her symptoms have returned. Urinary: cloudy urine, dysuria, frequency, and urgency She is using topical estrogen cream, d-mannose. She discontinued the nitrofurantoin prophylaxis. T Allergies: Review of patient's allergies indicates: No Known Allergies Active Medications: Current Outpatient Medications Medication Sig Dispense Refill fexofenadine (MARIAN) 180 MG Tablet Take 1 Tablet by mouth in the morning. Aspirin 81 MG Tablet Take 1 Tab by mouth daily. 34 Tab 5 CPAP every night at bedtime. Probiotic Product Oral Capsule Take 1 Capsule by mouth in the morning. D-Mannose 350 MG Oral Capsule Take 1 Capsule by mouth in the morning and 1 Capsule before bedtime. Losartan Potassium 25 MG Oral Tablet (Cozaar) TAKE 1 TABLET BY MOUTH IN THE MORNING 90 Tablet 3 Metoprolol Succinate ER 25 MG Oral Tablet Extended Release 24 Hour (toPROL XL) TAKE 1 TABLET BY MOUTH DAILY 90 Tablet 3 Pantoprazole Sodium 40 MG Oral Tablet Delayed Release (Protonix) TAKE 1 TABLET BY MOUTH DAILY 90 Tablet 3 Xiidra 5 % Ophthalmic Solution Instill 0.2 mL into eye in the morning and 0.2 mL before bedtime. Atorvastatin Calcium 80 MG Oral Tablet (Lipitor) TAKE 1 TABLET BY MOUTH DAILY 90 Tablet 3 Ezetimibe 10 MG Oral Tablet (Zetia) TAKE 1 TABLET BY MOUTH ONCE DAILY 90 Tablet 3 Sertraline HCl 50 MG Oral Tablet (Zoloft) TAKE 1 TABLET BY MOUTH ONCE DAILY 90 Tablet 0 Triamterene-HCTZ 37.5-25 MG Oral Tablet ((Maxzide-25)) Take 1 Tablet by mouth once a day on Thursday,Thursday, and Thursday only. 15 Tablet 5 Estradiol 0.1 MG/GM Vaginal Cream (Estrace) Apply pea sized amount (0.5 gm) vaginally twice a week at bedtime 42.5 g 3 Vitamin B-12 500 MCG Oral Lozenge Take 1 Tablet by mouth in the morning. Calcium Carb-Cholecalciferol 600-5 MG-MCG Oral Tablet (Calcium + Vitamin D3) Take 1,200 mg by mouthin the morning. Trimethoprim 100 MG Oral Tablet (Proloprim) Take 1 Tablet by mouth every night at bedtime. 30 Tablet 3 Nitroglycerin 0.4 MG Sublingual Tablet Sublingual (Nitrostat) Place under the tongue 1 Tablet every5 minutes as needed for Pain, Chest. Up to 3 in 15 minutes. (Patient not taking: Reported on 02/19/2023) 25 Tablet 11 Nystatin-Triamcinolone 883321-3.1 UNIT/GM-% External Cream (Mycolog) Clobetasol Propionate 0.05 % External Cream (Temovate) Apply topically to affected area 2 times a day. To affected area for up to two weeks. 15 g 1 Diclofenac Sodium 1 % External Gel (Voltaren) Apply topically to affected area 4 times a day. Applyto tender areas right knee 150 g 6 Ondansetron 4 MG Oral Tablet Disintegrating (Zofran) Place 1 Tablet on tongue every 8 hours as needed for Nausea. dissolve on tongue. (Patient not taking: Reported on 07/24/2023) 20 Tablet 0 LORazepam 0.5 MG Oral Tablet (Ativan) Take 1 Tablet by mouth every 6 hours as needed for Anxiety. 30 Tablet 0 Sulfamethoxazole-Trimethoprim 800-160 MG Oral Tablet (Bactrim DS) Take 1 Tablet by mouth in the morning and 1 Tablet before bedtime. Do all this for 10 days. For 10 days.. 20 Tablet 0 No current facility-administered medications for this visit. ROS: No Change since previous visit Results for orders placed or performed in visit on 08/14/23 URINALYSIS, POINT OF CARE Result Value Ref Range Color, Urine Yellow Light Yellow, Yellow Clarity, Urine Clear Clear Glucose, Urine Negative Negative mg/dL Bilirubin, Urine Negative Negative Ketone, Urine Negative Negative mg/dL Specific [place], Urine 1.020 1.003 - 1.030 Blood, Urine Trace-intact (A) Negative pH, Urine 6.0 5.0, 5.5, 6.0, 6.5, 7.0, 7.5 units Protein, Urine Negative Negative mg/dL Urobilinogen, Urine 0.2 0.2, 1.0 mg/dL Nitrite, Urine Negative Negative Esterase, Urine Small (A) Negative Impression: This is a 67 year old with Recurrent UTI (Primary) - URINALYSIS, POINT OF CARE Postmenopausal atrophic vaginitis Urge incontinence of urine Other orders - Trimethoprim 100 MG Oral Tablet (Proloprim); Take 1 Tablet by mouth every night at bedtime. Follow Up: Return in about 3 months (around 11/14/2023). Will stop the clobetasol steroid cream, continue topical estrogen cream every other night, d-mannose, po hydration. Will empirically start Keflex 500 bid for 10 days as her UA was large for leukocytes. Patient doesn't believe that she has an actual allergy to Keflex. Precautions reviewed. I spent a total of 30 minutes on the date of service in preparation, delivery, and documentation ofthe care provided to Breana Gasca excluding any time spent in the performance of separately billed services. Gómez Becker MD 07/27/2023 1:29 PM Breana Gasca presents for a follow up visit at [facility]ologic [facility]. She was previously seen for recurrent UTI. Has been evaluated with cysto and renal US: both negative On estrogen, d-mannose. Was on suppressive therapy in the past Since last seen had to cancel joint replacement bc of UTI. Urinary: Adequate fluid; at least 64 oz of fluid. Had Sling 2003. Worked well. But urge. Double voids Had cystoscopy Had US of Kidneys Began vaginal estrogen within last year Was on clobetasol for LSA GI: No bowel leakage Symptoms: cloudy urine, pain. Brimmer Blocker: as above Concerns: ongoing management resolution of UTI Allergies: Review of patient's allergies indicates: No Known Allergies Active Medications: Current Outpatient Medications Medication Sig Dispense Refill fexofenadine (MARIAN) 180 MG Tablet Take 1 Tablet by mouth in the morning. Aspirin 81 MG Tablet Take 1 Tab by mouth daily. 34 Tab 5 CPAP every night at bedtime. Probiotic Product Oral Capsule Take 1 Capsule by mouth in the morning. D-Mannose 350 MG Oral Capsule Take 1 Capsule by mouth in the morning and 1 Capsule before bedtime. Losartan Potassium 25 MG Oral Tablet (Cozaar) TAKE 1 TABLET BY MOUTH IN THE MORNING 90 Tablet 3 Metoprolol Succinate ER 25 MG Oral Tablet Extended Release 24 Hour (toPROL XL) TAKE 1 TABLET BY MOUTH DAILY 90 Tablet 3 Pantoprazole Sodium 40 MG Oral Tablet Delayed Release (Protonix) TAKE 1 TABLET BY MOUTH DAILY 90 Tablet 3 Xiidra 5 % Ophthalmic Solution Instill 0.2 mL into eye in the morning and 0.2 mL before bedtime. Atorvastatin Calcium 80 MG Oral Tablet (Lipitor) TAKE 1 TABLET BY MOUTH DAILY 90 Tablet 3 Ezetimibe 10 MG Oral Tablet (Zetia) TAKE 1 TABLET BY MOUTH ONCE DAILY 90 Tablet 3 Sertraline HCl 50 MG Oral Tablet (Zoloft) TAKE 1 TABLET BY MOUTH ONCE DAILY 90 Tablet 0 Triamterene-HCTZ 37.5-25 MG Oral Tablet ((Maxzide-25)) Take 1 Tablet by mouth once a day on Thursday,Thursday, and Thursday only. 15 Tablet 5 Estradiol 0.1 MG/GM Vaginal Cream (Estrace) Apply pea sized amount (0.5 gm) vaginally twice a week at bedtime 42.5 g 3 Vitamin B-12 500 MCG Oral Lozenge Take 1 Tablet by mouth in the morning. Calcium Carb-Cholecalciferol 600-5 MG-MCG Oral Tablet (Calcium + Vitamin D3) Take 1,200 mg by mouthin the morning. Trimethoprim 100 MG Oral Tablet (Proloprim) Take 1 Tablet by mouth every night at bedtime. 30 Tablet 3 Nitroglycerin 0.4 MG Sublingual Tablet Sublingual (Nitrostat) Place under the tongue 1 Tablet every5 minutes as needed for Pain, Chest. Up to 3 in 15 minutes. (Patient not taking: Reported on 02/19/2023) 25 Tablet 11 Nystatin-Triamcinolone 628603-0.1 UNIT/GM-% External Cream (Mycolog) Clobetasol Propionate 0.05 % External Cream (Temovate) Apply topically to affected area 2 times a day. To affected area for up to two weeks. 15 g 1 Diclofenac Sodium 1 % External Gel (Voltaren) Apply topically to affected area 4 times a day. Applyto tender areas right knee 150 g 6 Ondansetron 4 MG Oral Tablet Disintegrating (Zofran) Place 1 Tablet on tongue every 8 hours as needed for Nausea. dissolve on tongue. (Patient not taking: Reported on 07/24/2023) 20 Tablet 0 LORazepam 0.5 MG Oral Tablet (Ativan) Take 1 Tablet by mouth every 6 hours as needed for Anxiety. 30 Tablet 0 Sulfamethoxazole-Trimethoprim 800-160 MG Oral Tablet (Bactrim DS) Take 1 Tablet by mouth in the morning and 1 Tablet before bedtime. Do all this for 10 days. For 10 days.. 20 Tablet 0 No current facility-administered medications for this visit. ROS: No Change since previous visit with the exception of as above not currently . Blood pressure %mary are not available for patients who are 18 years or older. There is no height or weight on file to calculate BMI. EXAM: Well developed well nourished female in no apparent distress. Alert oriented x3 HEART: Normal peripheral pulses, Edema trace THYROID: no obvious neck masses LUNG: No increased respiratory effort ABD: Soft, NT, ND, PELVIC EXAM: Ext gen: Normal external female genitalia, +LSA changes Vagina: No vaginal lesions or abnormal discharge. + atrophy Cervix appears normal. BIMANUAL EXAM: no masses, NT Levator ani muscle strength 3. No tenderness elicited on palpation Rectovaginal exam: perianal area normal, anus normal, . The data/ labs below were reviewed: PVR: 104 Via bladder scan then voided 100 Results for orders placed or performed in visit on 08/14/23 URINALYSIS, POINT OF CARE Result Value Ref Range Color, Urine Yellow Light Yellow, Yellow Clarity, Urine Clear Clear Glucose, Urine Negative Negative mg/dL Bilirubin, Urine Negative Negative Ketone, Urine Negative Negative mg/dL Specific [place], Urine 1.020 1.003 - 1.030 Blood, Urine Trace-intact (A) Negative pH, Urine 6.0 5.0, 5.5, 6.0, 6.5, 7.0, 7.5 units Protein, Urine Negative Negative mg/dL Urobilinogen, Urine 0.2 0.2, 1.0 mg/dL Nitrite, Urine Negative Negative Esterase, Urine Small (A) Negative Impression: This is a 67 year old with recurrent UTI. No obvious triggers. REviewed last several months of C&S results: Largely E. Coli and resistant only to nitrofurantoin. Recurrent UTI (Primary) - URINALYSIS, POINT OF CARE Postmenopausal atrophic vaginitis Urge incontinence of urine Other orders - Trimethoprim 100 MG Oral Tablet (Proloprim); Take 1 Tablet by mouth every night at bedtime. Follow Up: Return in about 3 months (around 11/14/2023). Reviewed: management of recurrent UTI Plan: 1. Increase estrogen to daily 2. Has had full workup. 3. Suppressive antibiotics: trimethoprim, continue d-mannose 4. Consider bidet for cleansing perineum I spent a total of 35 minutes on the date of service in preparation, delivery, and documentation ofthe care provided to Breana Esther Campos excluding any time spent in the performance of separately billed services. Breana Quinones MD 08/14/2023 10:21 AM documented in this encounter Nursing Notes * Melisa Quintero TECH - 08/14/2023 10:18 AM EDT Patient presents with frequent uti's. documented in this encounter Plan of Treatment Upcoming Encounters Date Type Department Care Team (Late st Contact Info) Description 12/22/2023 10:00 AM EDT Office Visit [facility] [address] [place] [address] Shilpa De Luna CRNP [address] [place] [address] [phone] 02/01/2024 9:30 AM EDT Office Visit Cardiology, [facility] [address] [place] [address] Shawn Michelle PA-C [address] [place] [phone] 02/26/2024 9:30 AM EST Office [facility] [address] [facility] [phone] Breana Quinones MD [address] [place] [address] John Nurse [facility] [address] [facility] [place] [phone] 04/04/2024 2:00 PM EST Office Visit Dermatology [facility] [address] [facility] [place] [address] Kendall Bhakta MD [address] [place] [id number] Health Maintenance Due Date Last Done Comments [...] Not on filedocumented as of this encounter Procedures Procedure Name Priority Date/Time Associated Diagnosis Comments URINALYSIS, POINT OF CARE Routine 08/14/2023 10:17 AM EDT Recurrent UTI documented in this encounter Results * (ABNORMAL) URINALYSIS, POINT OF CARE (08/14/2023 10:17 AM EDT) Color, Urine Yellow Light Yellow, Yellow 08/15/2023 2:12 AM EDT [facility] DO [address] Clarity, Urine Clear Clear 08/15/2023 2:12 AM EDT [facility] DO [address] Glucose, Urine Negative Negative mg/dL 08/15/2023 2:12 AM EDT [facility] DO [address] Bilirubin, Urine Negative Negative 08/15/2023 2:12 AM EDT [facility] DO [address] Ketone, Urine Negative Negative mg/dL 08/15/2023 2:12 AM EDT [facility] DO [address] Specific [place], Urine 1.020 1.003 - 1.030 08/15/2023 2:12 AM EDT [facility] DO [address] Blood, Urine Trace-intact (A) Negative 08/15/2023 2:12 AM EDT [facility] DO [address] pH, Urine 6.0 5.0, 5.5, 6.0, 6.5, 7.0, 7.5 units 08/15/2023 2:12 AM EDT [facility] DO [address] Protein, Urine Negative Negative mg/dL 08/15/2023 2:12 AM EDT [facility] DO [address] Urobilinogen, Urine 0.2 0.2, 1.0 mg/dL 08/15/2023 2:12 AM EDT [facility] DO [address] Nitrite, Urine Negative Negative 08/15/2023 2:12 AM EDT [facility] DO [address] Esterase, Urine Small(A) Negative 08/15/2023 2:12 AM EDT [facility] DO [address] Urine 08/14/2023 10:1 7 AM EDT 08/15/2023 2:12 AM EDT Breana Quinones MD LAB POINT OF CARE T EST DOCKED DEVICE UNSOLICITED RESULTS [facility] DO [address] [place] [address] documented in this encounter Visit Diagnoses Diagnosis Recurrent UTI- Primary Urinary tract infection, site not specified Postmenopausal atrophic vaginitis Urge incontinence of urine Urge incontinence documented in this encounter Advance Directives Latest [...] the patient have Health Care Power of Night Patrol Inspector? No Care Teams Collections Manager Relationship Specialty Start Date End Date Shilpa De Luna CRNP [facility] [place] [address] PCP - General Nurse Practitioner 08/05/23 documented as of this encounter
--- OUTSIDE RECORDS SUMMARY | 2023-08-29 07:31 | External Medical Summary | Summary of Care ---
Author Name Unknown Organization [facility] Address [address] [place] [address] Phone [phone] Care Team Providers Care Building Code Inspector Name Role Phone Shilpa De Luna Primary Care Provider + Reason for Visit * Reason Comments Outpatient Testing Encounter Details Date Type Department Care Team (Late st Contact Info) Description 08/12/2023 12:30 PM EDT Laboratory Laboratory Patient Service [address] [phone] [facility] Lock [address] [place] [id number] Dysuria Allergies Active Allergy Reactions Criticality Noted Date Comments Cephalexin Hives Medium 08/28/2011 documented as of this encounter (statuses as of 08/13/2023) Medications Medication Sig Dispensed Refills Start Date [...] Patient not taking.Reported on 02/19/2023 Nystatin-Triamcinolo ne 805558-2.1 UNIT/GM-% External Cream (Mycolog) 0 07/17/2022 Active [...] 25 MG Oral Tablet (Cozaar)Indications: Atherosclerosis of [place] coronary artery of [place] heart without angina pectoris,PVC (premature ventricular contraction),HTN, [...] 80 MG Oral Tablet (Lipitor)Indications :Atherosclerosis of [place] coronary artery of [place] heart without angina pectoris TAKE 1 TABLET BY MOUTH DAILY 90 Tablet 3 07/07/2023 Active Ezetimibe 10 MG Oral Tablet (Zetia)Indications:F atty liver,Atherosclerosi s of [place] coronary artery of [place] heart without angina pectoris,Dyslipidemi a, goal LDL [...] days.. 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 Post-menopausal 09/11/2020 Atherosclerotic heart diseas e of [place] coronary artery with other forms of angina pectoris 08/14/2020 Gastroesophageal reflux disease 08/14/2020 Class 3 severe obesity due t o excess calories without serious comorbidity with body mass index (BMI) of 40.0 to 44.9 in adult 07/26/2020 History of actinic keratoses 01/31/2020 PVC (premature ventricular contraction) 10/13/19 Prediabetes 09/13/2018 Overview: Per Prediabetes protocol DAMON on CPAP 08/17/2018 Atherosclerosis of [place] co ronary artery of [place] heart without angina pectoris 08/17/2018 MATTHEW (generalized anxiety disorder) 12/15/2017 Encounter for gynecological examination with abnormal finding 03/25/2016 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 Kayla Templeton Fatty liver documented as of this encounter (statuses as of 08/13/2023) Resolved Problems Problem Noted Date Diagnosed Date Resolved Date Body mass index (BMI) of 40. 0 to 44.9 in adult 02/13/2020 08/14/2020 Overview: Per Obesity protocol documented as of this encounter (statuses as of 08/13/2023) Immunizations Name Administration Dates Next Due COVID-19 [...] as of this encounter Miscellaneous Notes * Addendum Note - Gómez Becker MD - 08/13/2023 7:34 AM EDTAddended by: GÓMEZ BECKER on: 08/13/2023 07:34 AM Modules accepted: Orders documented in this encounter Plan of Treatment Upcoming Encounters Date Type Department Care Team (Late st Contact Info) Description 08/20/2023 11:20 AM EDT Office Visit Urogynecology [facility] [address] [place] [address] Winifred Jara PA-C [address] [place] [address] 12/22/2023 10:00 AM EDT Office Visit Family [facility] [address] [place] [address] Shilpa De Luna CRNP [address] [place] [address] 02/01/2024 9:30 AM EDT Office Visit Cardiology, [facility] [address] [place] [address] Shawn Michelle PA-C [address] [place] [address] 04/04/2024 2:00 PM EST Office Visit [facility] [address] [facility] [address] Kendall Bhakta MD [address] [facility] [place] [address] Pending Results Name Type Priority Associated Diagnoses Date /Time CULTURE, URINE, QUANTITATIVE Lab Routine Dysuria 08/12/2023 [...] Name Priority Date/Time Associated Diagnosis Comments URINALYSIS, REFLEX TO MICROSCOPIC Routine 08/12/2023 12:38 PM EDT Dysuria documented in this encounter Results * (ABNORMAL) URINALYSIS, REFLEX TO MICROSCOPIC (08/12/2023 12:38 PM EDT) Color, Urine Yellow Colorless, Light Yellow, Yellow, Dark Yellow 08/12/2023 5:55 PM EDT LABORATORY [facility] Clarity, Urine Slightly Cloudy(A) Clear 08/12/2023 5:55 PM EDT LABORATORY [facility] Glucose, Urine Negative Negative mg/dL 08/12/2023 5:55 PM EDT LABORATORY [facility] Bilirubin, Urine Negative Negative 08/12/2023 5:55 PM EDT LABORATORY [facility] Ketone, Urine Negative Negative mg/dL 08/12/2023 5:55 PM EDT LABORATORY [facility] Specific Edna, Urine 1.027 1.003 - 1.030 08/12/2023 5:55 PM EDT LABORATORY [facility] Blood, Urine Small(A) Negative 08/12/2023 5:55 PM EDT LABORATORY [facility] pH, Urine 6.0 5.0 - 7.5 Units 08/12/2023 5:55 PM EDT LABORATORY [facility] Protein, Urine 30(A) Negative mg/dL 08/12/2023 5:55 PM EDT LABORATORY [facility] Urobilinogen, Urine Normal Normal mg/dL 08/12/2023 5:55 PM EDT LABORATORY [facility] Nitrite, Urine Negative Negative 08/12/2023 5:55 PM EDT LABORATORY [facility] Esterase, Urine Large(A) Negative 08/12/2023 5:55 PM EDT LABORATORY [facility] RBC, Urine 10-19(A) 0 - 2 /HPF 08/12/2023 5:55 PM EDT LABORATORY [facility] WBC, Urine 50+(A) 0 - 2 /HPF 08/12/2023 5:55 PM EDT LABORATORY [facility] Bacteria, Urine 101-150(A) 0 - 25 /HPF 08/12/2023 5:55 PM EDT LABORATORY [facility] Mucus, Urine Many(A) None /HPF 08/12/2023 5:55 PM EDT LABORATORY [facility] Urine Urine specimen obtained by clean catch procedure / Unknown Non-blood Collection / Unknown 08/12/2023 12:38 PM EDT 08/12/2023 12:38 PM EDT Gómez Becker MD LAB URINE ORDERABLES LABORATORY [facility] [address] [place] [address] documented in this encounter Visit Diagnoses Diagnosis Dysuria documented [...] the patient have Health Care Power of Color Dipper? No Care Teams Building Code Inspector Relationship Specialty Start Date End Date Shilpa De Luna CRNP [facility] [place] [address] PCP - General Nurse Practitioner 08/05/23 documented as of this encounter
--- OUTSIDE RECORDS SUMMARY | 2023-08-29 07:31 | External Medical Summary ---
Author Name Unknown Address Unknown Organization K01:LABORATORY [facility] - [address] [facility] [address] Laboratory Report Ordering Provider Test Date Status TOR GARCIA 08/12/2023 12:38:28 Final Observation Date Value Abnormality Reference (Units ) Status Bacteria identified in Specimen by Culture 08/12/2023 12:38:28 [id number]^ESCHE RICHIA COLI Abnormal Final 10,000 to 100,000 colonies/m L Escherichia coli Performing Location [facility] - [address] [facility] [address] Ordering Provider Test Date Status TOR GARCIA 08/12/2023 12:38:28 Final Observation Date Value Abnormality Reference (Units ) Status Ampicillin 08/12/2023 12:38:28 8 Susceptible Final Cefazolin 08/12/2023 12:38:28 <=4 Susceptible Final Cefepime susceptibility 08/12/2023 12:38:28 <=1 Susceptible Final Ceftriaxone suceptibility 08/12/2023 12:38:28 <=1 Susceptible Final Ciprofloxacin 08/12/2023 12:38:28 <=0.25 Susceptible Final Due to serious side effects, the FDA has advised against using Ciprofloxacin to treat uncomplicated UTIs and respiratory tract infections unless there are no alternative treatment options. Gentamicin susceptibility 08/12/2023 12:38:28 <=1 Susc eptible Final Nitrofurantoin susceptibility 08/12/2023 12:38:28 >=512 Resistant Final Piperacillin + Tazobactamsusceptibility 08/12/2023 12:38:28 <=4 Susceptible Final TMP-SMZ susceptibility 08/12/2023 12:38:28 <=20 Suscept ible Final Test: Culture, Urine, Quanti tative
Specimen Source: Urine, Clean Catch
Specimen Type: Urine
Specimen Date: 08/12/2023 12:38 PM
Result Date: 08/14/2023 1:15 PM
Result Status: Final result
Abnormal: Yes
Resulting Lab: [facility]ATORY [facility]
[address]
[facility] [address]

CULTURE

10,000 to 100,000 colonies/mL Escherichia coli (Abnormal)

SUSCEPTIBILITY

Escherichia coli
METHOD MICROBROTH
DILUTIONS

AMPICILLIN 8 Susceptible
CEFAZOLIN <=4 Susceptible
CEFEPIME <=1 Susceptible
CEFTRIAXONE <=1 Susceptible
CIPROFLOXACIN <=0.25 Susceptible
GENTAMICIN <=1 Susceptible
NITROFURANTOIN >=512 Resistant
PIPERACILLIN TAZOBACTAM <=4 Susceptible
TRIMETH/SULFAMETHOXAZOLE <=20 Susceptible

null Performing Location LAB[facility]ORY [facility] - [address] [facility] [address]
--- OUTSIDE RECORDS SUMMARY | 2023-08-29 07:31 | External Medical Summary ---
Author Name Unknown Address Unknown Organization : Laboratory Report Ordering Provider Test Date Status PEDRO YOUNG 08/14/2023 10:17:00 Final Observation Date Value Abnormality Reference (Units ) Status Color of Urine by Auto 08/14/2023 10:17:00 Yellow Light Yellow, Yellow Final Clarity, Urine 08/14/2023 10:17:00 Clear Clear Final Glucose [Mass/volume] in Urine by Automated test strip 08/14/2023 10:17:00 Negative Negative (mg/dL) Final Bilirubin.total [Presence] in Urine by Automated test strip 08/14/2023 10:17:00 Negative Negative Final Ketones [Mass/volume] in Urine by Automated test strip 08/14/2023 10:17:00 Negative Negative (mg/dL) Final Specific gravity, Urine 08/14/2023 10:17:00 1.020 1.003-1.030 Final Hemoglobin [Presence] in Urine by Automated test strip 08/14/2023 10:17:00 Trace-intact Abnormal Negative Final pH, Urine 08/14/2023 10:17:00 6.0 5.0, 5.5, 6.0, 6.5, 7.0, 7.5 (units) Final Protein [Mass/volume] in Urine by Automated test strip 08/14/2023 10:17:00 Negative Negative (mg/dL) Final Urobilinogen, Urine 08/14/2023 10:17:00 0.2 0.2, 1.0 (mg/dL) Final Nitrite [Presence] in Urine by Automated test strip 08/14/2023 10:17:00 Negative Negative Final Leukocyte esterase [Presence] in Urine by Automated test strip 08/14/2023 10:17:00 Small Abnormal Negative Final Performing Location
--- OUTSIDE RECORDS SUMMARY | 2023-08-29 07:31 | External Medical Summary | Summary of Care ---
Author Name Unknown Organization [facility] Address [address] [address] Phone [phone] Care Team Providers Care Incident Response Coordinator Name Role Phone Shilpa De Luna Primary Care Provider + Reason for Visit * Reason Onset Date Comments Advice 08/12/2023 Appointment 08/12/2023 Encounter Details Date Type Department Care Team (Late st Contact Info) Description 08/12/2023 Telephone Urogynecology [facility] [address] [place] [address] Gómez Becker MD [address] [place] [address] Advice; Appointment Allergies Active Allergy Reactions Criticality Noted Date [...] Patient not taking.Reported on 02/19/2023 Nystatin-Triamcinolon e 394552-5.1 UNIT/GM-% External Cream (Mycolog) 0 07/17/2022 Active [...] 25 MG Oral Tablet (Cozaar)Indications:A therosclerosis of [place] coronary artery of [place] heart without angina pectoris,PVC (premature ventricular contraction),HTN, [...] 80 MG Oral Tablet (Lipitor)Indications: Atherosclerosis of [place] coronary artery of [place] heart without angina pectoris TAKE 1 TABLET BY MOUTH DAILY 90 Tablet 3 07/07/2023 Active Ezetimibe 10 MG Oral Tablet (Zetia)Indications:Fa tty liver,Atherosclerosis of [place] coronary artery of [place] heart without angina pectoris,Dyslipidemia , goal LDL [...] Post-menopausal 09/11/2020 Atherosclerotic heart diseas e of [place] coronary artery with other forms of angina pectoris 08/14/2020 Gastroesophageal reflux disease 08/14/2020 Class 3 severe obesity due t o excess calories without serious comorbidity with body mass index (BMI) of 40.0 to 44.9 in adult 07/26/2020 History of actinic keratoses 01/31/2020 PVC (premature ventricular contraction) 10/13/19 19 Prediabetes 09/13/2018 Overview: Per Prediabetes protocol DAMON on CPAP 08/17/2018 Atherosclerosis of [place] co ronary artery of [place] heart without angina pectoris 08/17/2018 MATTHEW (generalized anxiety disorder) 12/15/2017 Encounter for gynecological examination with abnormal finding 03/25/2016 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 Kist Rosacea Fatty liver documented as of this encounter [...] encounter Miscellaneous Notes * Telephone Encounter - Aileen Henderson RN - 08/13/2023 8:51 AM EDT Called patient to notify her that Dr. Becker sent Bactrim to her pharmacy. * Telephone Encounter - Kianna Young LPN - 08/12/2023 2:45 PM EDT Received call from pt noting that she had to cancel her total knee replacement surgery on 08/14/23 d/t frequent UTIs. Pt has a telemed appt on 09/07/23, but requesting a sooner in-person appt. Pt offered first available with Winifred Jara at [facility] 08/20/23 at 11:20am. Pt accepted. * Telephone Encounter - Kianna Young LPN - 08/12/2023 11:43 AM EDT Call placed to advise pt orders were placed for UA and culture to leave a sample at nearest [facility] lab. Pt asking for abx if anything [...] call from pt. Routed to provider and Samia advise. * Telephone Encounter - Jeana Connors LPN - 08/12/2023 8:52 AM EDT Patient called with c/o urine becoming cloudy, frequency, not feeling pressure, some pain in the pelvic area. Finished cephalexin last and was doing better. She is concerned she has knee replacement scheduled Thursday and is concerned it may be cancelled due to infection being untreated. Asking if treatment can be sent for her. Will have Dr. Becker review. documented in this encounter Plan of Treatment Upcoming Encounters Date Type Department Care Team (Late st Contact Info) Description 08/20/2023 11:20 AM EDT Office Visit Urogynecology [facility] [address] [place] [address] Winifred Jara PA-C [address] [place] [address] 12/22/2023 10:00 AM EDT Office Visit [facility] [address] [place], [place] [id number] Shilpa De Luna CRNP [address] [place] [address] 02/01/2024 9:30 AM EDT Office Visit Cardiology, [facility] [address] [place] [address] Shawn Michelle PA-C [address] [place] [address] 04/04/2024 2:00 PM EST Office Visit Dermatology [facility] [address] [facility] [place] [address] Kendall Bhakta MD [address] [facility] [place] [address] Pending Results Name Type Priority Associated Diagnoses Date /Time CULTURE, URINE, QUANTITATIVE Lab Routine Dysuria 08/12/2023 12:38 PM EDT Scheduled Orders Name Type Priority Associated Diagnoses Orde r Schedule CULTURE, URINE, QUANTITATIVE Lab Routine Dysuria Expected: [...] Not on filedocumented as of this encounter Results * (ABNORMAL) URINALYSIS, REFLEX TO MICROSCOPIC (08/12/2023 12:38 PM EDT) Color, Urine Yellow Colorless, Light Yellow, Yellow, Dark Yellow 08/12/2023 5:55 PM EDT [facility] Clarity, Urine Slightly Cloudy(A) Clear 08/12/2023 5:55 PM EDT LABORATORY C Glucose, Urine Negative Negative mg/dL 08/12/2023 5:55 PM EDT [facility] Bilirubin, Urine Negative Negative 08/12/2023 5:55 PM EDT [facility] Ketone, Urine Negative Negative mg/dL 08/12/2023 5:55 PM EDT [facility] Specific Wheeler, Urine 1.027 1.003 - 1.030 08/12/2023 5:55 PM EDT [facility] Blood, Urine Small(A) Negative 08/12/2023 5:55 PM EDT [facility] pH, Urine 6.0 5.0 - 7.5 Units 08/12/2023 5:55 PM EDT [facility] Protein, Urine 30(A) Negative mg/dL 08/12/2023 5:55 PM EDT [facility] Urobilinogen, Urine Normal Normal mg/dL 08/12/2023 5:55 PM EDT [facility] Nitrite, Urine Negative Negative 08/12/2023 5:55 PM EDT [facility] Esterase, Urine Large(A) Negative 08/12/2023 5:55 PM EDT [facility] RBC, Urine 10-19(A) 0 - 2 /HPF 08/12/2023 5:55 PM EDT [facility] WBC, Urine 50+(A) 0 - 2 /HPF 08/12/2023 5:55 PM EDT [facility] Bacteria, Urine 101-150(A) 0 - 25 /HPF 08/12/2023 5:55 PM EDT [facility] Mucus, Urine Many(A) None /HPF 08/12/2023 5:55 PM EDT [facility] Urine Urine specimen obtained by clean catch procedure / Unknown Non-blood Collection / Unknown 08/12/2023 12:38 PM EDT 08/12/2023 12:38 PM EDT Gómez Becker MD LAB URINE ORDERABLES [facility] [address] [place] [address] documented in this encounter Visit Diagnoses Diagnosis Dysuria- Primary [...] the patient have Health Care Power of E Commerce Merchant? No Care Teams Incident Response Coordinator Relationship Specialty Start Date End Date Shilpa De Luna CRNP [facility] [place] [address] PCP - General Nurse Practitioner 08/05/23 documented as of this encounter
--- OUTSIDE RECORDS SUMMARY | 2023-08-29 07:31 | External Medical Summary ---
Author Name Unknown Address Unknown Organization K01:[facility] - [address] [facility] [address] Laboratory Report Ordering Provider Test Date Status TOR GARCIA 08/12/2023 12:38:28 Final Observation Date Value Abnormality Reference (Units ) Status Color of Urine by Auto 08/12/2023 12:38:28 Yellow Colorless, Light Yellow, Yellow, Dark Yellow Final Clarity, Urine 08/12/2023 12:38:28 Slightly Cloudy Abnormal Clear Final Glucose [Mass/volume] in Urine by Automated test strip 08/12/2023 12:38:28 Negative Negative (mg/dL) Final Bilirubin.total [Presence] in Urine by Automated test strip 08/12/2023 12:38:28 Negative Negative Final Ketones [Mass/volume] in Urine by Automated test strip 08/12/2023 12:38:28 Negative Negative (mg/dL) Final Specific gravity, Urine 08/12/2023 12:38:28 1.027 1.003-1.030 Final Hemoglobin [Presence] in Urine by Automated test strip 08/12/2023 12:38:28 Small Abnormal Negative Final pH, Urine 08/12/2023 12:38:28 6.0 5.0-7.5 (Units) Final Protein [Mass/volume] in Urine by Automated test strip 08/12/2023 12:38:28 30 Abnormal Negative (mg/dL) Final Urobilinogen [Mass/volume] in Urine by Automated test strip 08/12/2023 12:38:28 Normal Normal (mg/dL) Final Nitrite [Presence] in Urine by Automated test strip 08/12/2023 12:38:28 Negative Negative Final Leukocyte esterase [Presence] in Urine by Automated test strip 08/12/2023 12:38:28 Large Abnormal Negative Final RBC, Urine 08/12/2023 12:38:28 10-19 Abnormal 0-2 (/HPF) Final WBC, Urine 08/12/2023 12:38:28 50+ Abnormal 0-2 (/HPF) Final Bacteria [#/area] in Urine sediment by Microscopy high power field 08/12/2023 12:38:28 101-150 Abnormal 0-25 (/HPF) Final Mucus, Urine 08/12/2023 12:38:28 Many Abnormal None (/HPF) Final Performing Location LAB[facility]ORY [facility] - [address] [facility] [address]
--- OUTSIDE RECORDS SUMMARY | 2023-08-29 07:31 | External Medical Summary | Summary of Care ---
Author Name Unknown Organization [facility] Address [address] [address] Phone [phone] Care Team Providers Care Circuit Breaker Supervisor Name Role Phone Shilpa De Luna Primary Care Provider + Reason for Visit * Reason Onset Date Comments Advice 08/12/2023 Appointment 08/12/2023 Encounter Details Date Type Department Care Team (Late st Contact Info) Description 08/12/2023 Telephone Urogynecology [facility] [address] [place] [address] Gómez Becker MD [address] [place] [address] Advice; Appointment Allergies Active Allergy Reactions Criticality [...] Patient not taking.Reported on 02/19/2023 Nystatin-Triamcinolon e 087127-8.1 UNIT/GM-% External Cream (Mycolog) 0 07/17/2022 Active [...] 25 MG Oral Tablet (Cozaar)Indications:A therosclerosis of [place] coronary artery of [place] heart without angina pectoris,PVC (premature ventricular contraction),HTN, [...] 80 MG Oral Tablet (Lipitor)Indications: Atherosclerosis of [place] coronary artery of [place] heart without angina pectoris TAKE 1 TABLET BY MOUTH DAILY 90 Tablet 3 07/07/2023 Active Ezetimibe 10 MG Oral Tablet (Zetia)Indications:Fa tty liver,Atherosclerosis of [place] coronary artery of [place] heart without angina pectoris,Dyslipidemia , goal LDL [...] Post-menopausal 09/11/2020 Atherosclerotic heart diseas e of [place] coronary artery with other forms of angina pectoris 08/14/2020 Gastroesophageal reflux disease 08/14/2020 Class 3 severe obesity due t o excess calories without serious comorbidity with body mass index (BMI) of 40.0 to 44.9 in adult 07/26/2020 History of actinic keratoses 01/31/2020 PVC (premature ventricular contraction) 10/13/19 19 Prediabetes 09/13/2018 Overview: Per Prediabetes protocol DAMON on CPAP 08/17/2018 Atherosclerosis of [place] co ronary artery of [place] heart without angina pectoris 08/17/2018 MATTHEW (generalized [...] offered first available with Winifred Jara at [facility] 08/20/23 at 11:20am. Pt accepted. * Telephone Encounter - Kianna Young LPN - 08/12/2023 11:43 AM EDT Call placed to advise pt orders were placed for UA and culture to leave a sample at nearest [facility] lab. Pt asking for abx if [...] from pt. Routed to provider and Samia dee. * Telephone Encounter - Jeana Connors LPN [...] 08/20/2023 11:20 AM EDT Office Visit Urogynecology [facility] [address] [place] [address] Winifred Jara PA-C [address] [place] [address] 12/22/2023 10:00 AM EDT Office Visit [facility] [address] [place] [address] Shilpa De Luna CRNP [address] [place] [address] 02/01/2024 9:30 AM EDT Office Visit Cardiology, [facility] [address] [place] [address] Shawn Michelle PA-C [address] [place] [address] 04/04/2024 2:00 PM EST Office Visit Dermatology [facility] [address] [facility] [place] [address] Kendall Bhakta MD [address] [facility] [place] [address] Pending Results Name Type Priority Associated Diagnoses [...] the patient have Health Care Power of Budget Clerk? No Care Teams Circuit Breaker Supervisor Relationship Specialty Start Date End Date Shilpa De Luna CRNP [address] [place] [phone] PCP - General Nurse Practitioner 08/05/23 documented as of this encounter
--- OUTSIDE RECORDS SUMMARY | 2023-08-29 07:32 | External Medical Summary | Summary of Care ---
Author Name Unknown Organization [facility] Address [address] [place] [address] Phone [phone] Care Team Providers Care Director Workers Compensation Name Role Phone Shilpa De Luna Primary Care Provider + Reason for Visit * Reason Comments Physical-Exam Encounter Details Date Type Department Care Team (Late st Contact Info) Description 08/05/2023 10:40 AM EDT Office Visit [facility] [address] [place] [address] Shilpa De Luna CRNP [address] [place] [address] Routine medical exam*; HTN, goal below 140/90; Coronary artery disease involving [place] coronary artery of [place] heart without angina pectoris; H/O heart artery stent; Sarcoidosis of lung with sarcoidosis of lymph nodes ([facility]); DAMON on CPAP; Prediabetes; MATTHEW (generalized anxiety disorder); Class 3 severe obesity due to excess calories without serious comorbidity with body mass index (BMI) of 40.0 to 44.9 in adult ([facility]) Allergies Active Allergy Reactions Criticality Noted Date Comments Cephalexin Hives Medium 08/28/2011 documented as of this encounter (statuses as of 08/05/2023) Medications Medication Sig Dispensed Refills Start Date End Date Status fexofenadine (MARIAN) 180 MG Tablet Take 1 Tablet by mouth in the morning. 0 Active Aspirin 81 MG Tablet Take 1 Tab by mouth daily. 34 Tab 5 9 Active CPAP every night at bedtime. 0 Active Nitroglycerin 0.4 MG Sublingual Tablet Sublingual (Nitrostat) Place under the tongue 1 Tablet every 5 minutes as needed for Pain, Chest. Up to 3 in 15 minutes. 25 Tablet 11 2 Active Additional Information Patient not taking.Reported on 02/19/2023 Nystatin-Triamcinol one 826767-1.1 UNIT/GM-% External Cream (Mycolog) 0 3 Active Probiotic Product Oral Capsule Take 1 Capsule by mouth in the morning. 0 Active D-Mannose 350 MG Oral Capsule Take 1 Capsule by mouth in the morning and 1 Capsule before bedtime. 0 Active Clobetasol Propionate 0.05 % External Cream (Temovate)Indicatio ns:Cutaneous sarcoidosis Apply topically to affected area 2 times a day. To affected area for up to two weeks. 15 g 1 3 Active Losartan Potassium 25 MG Oral Tablet (Cozaar)Indications :Atherosclerosis of [place] coronary artery of [place] heart without angina pectoris,PVC (premature ventricular contraction),HTN, goal below 140/90 TAKE 1 TABLET BY MOUTH IN THE MORNING 90 Tablet 3 3 Active Metoprolol Succinate ER 25 MG Oral Tablet Extended Release 24 Hour (toPROL XL)Indications:PVC (premature ventricular contraction) TAKE 1 TABLET BY MOUTH DAILY 90 Tablet 3 3 Active Pantoprazole Sodium 40 MG Oral Tablet Delayed Release (Protonix)Indicatio ns:Gastroesophageal reflux disease, unspecified whether esophagitis present TAKE 1 TABLET BY MOUTH DAILY 90 Tablet 3 3 Active Diclofenac Sodium 1 % External Gel (Voltaren) Apply topically to affected area 4 times a day. Apply to tender areas right knee 150 g 6 3 Active Ondansetron 4 MG Oral Tablet Disintegrating (Zofran) Place 1 Tablet on tongue every 8 hours as needed for Nausea. dissolve on tongue. 20 Tablet 0 3 Active Additional Information Patient not taking.Reported on 07/24/2023 Xiidra 5 % Ophthalmic Solution Instill 0.2 mL into eye in the morning and 0.2 mL before bedtime. 0 4 Active Atorvastatin Calcium 80 MG Oral Tablet (Lipitor)Indication s:Atherosclerosis of [place] coronary artery of [place] heart without angina pectoris TAKE 1 TABLET BY MOUTH DAILY 90 Tablet 3 4 Active Ezetimibe 10 MG Oral Tablet (Zetia)Indications: Fatty liver,Atheroscleros is of [place] coronary artery of [place] heart without angina pectoris,Dyslipidem ia, goal LDL below 70 TAKE 1 TABLET BY MOUTH ONCE DAILY 90 Tablet 3 4 Active Sertraline HCl 50 MG Oral Tablet (Zoloft)Indications :MATTHEW (generalized anxiety disorder) TAKE 1 TABLET BY MOUTH ONCE DAILY 90 Tablet 0 4 Active Triamterene-HCTZ 37.5-25 MG Oral Tablet ((Maxzide-25))Indic ations:HTN, goal below 140/90,Fluid retention Take 1 Tablet by mouth once a day on Thursday, Thursday, and Thursday only. 15 Tablet 5 4 Active Cephalexin 500 MG Oral Capsule (Keflex) Take 1 Capsule by mouth in the morning and 1 Capsule before bedtime. Do all this for 10 days. Until gone.. 20 Capsule 0 4 08/06/19 24 Active Estradiol 0.1 MG/GM Vaginal Cream (Estrace) Apply pea sized amount (0.5 gm) vaginally twice a week at bedtime 42.5 g 3 4 Active LORazepam 0.5 MG Oral Tablet (Ativan)Indications :MATTHEW (generalized anxiety disorder) Take 1 Tablet by mouth every 6 hours as needed for Anxiety. 30 Tablet 0 4 Active Vitamin B-12 500 MCG Oral Lozenge Take 1 Tablet by mouth in the morning. 0 Active Calcium Carb-Cholecalcifero l 600-5 MG-MCG Oral Tablet (Calcium + Vitamin D3) Take 1,200 mg by mouth in the morning. 0 Active Cholecalciferol (VITAMIN D) 1000 UNITS Tablet Take 1 Tablet by mouth in the morning. 0 08/05/19 24 Discontinued Vitamin C 500 MG Oral Tablet Chewable Take 1 Tablet by mouth in the morning. 0 08/05/19 24 Discontinued Calcium 150 MG Oral Tablet Take 4 Tablets by mouth in the morning. 0 08/05/19 24 Discontinued Zinc 25 MG Oral Tablet Take 1 Tablet by mouth in the morning. 0 08/05/19 24 Discontinued documented as of this encounter (statuses as of 08/05/2023) Active Problems Problem Noted Date Diagnosed Date Sarcoidosis of lung with sarcoidosis of lymph no rosalia 07/30/2021 Post-menopausal 09/11/2020 Atherosclerotic heart diseas e of [place] coronary artery with other forms of angina pectoris 08/14/2020 Gastroesophageal reflux disease 08/14/2020 Class 3 severe obesity due t o excess calories without serious comorbidity with body mass index (BMI) of 40.0 to 44.9 in adult 07/26/2020 History of actinic keratoses 01/31/2020 PVC (premature ventricular contraction) 10/13/19 Prediabetes 09/13/2018 Overview: Per Prediabetes protocol DAMON on CPAP 08/17/2018 Atherosclerosis of [place] co ronary artery of [place] heart without angina pectoris 08/17/2018 MATTHEW (generalized anxiety disorder) 12/15/2017 Encounter for gynecological examination with abnormal finding 03/25/2016 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 Kayla Templeton Fatty liver documented as of this encounter (statuses as of 08/05/2023) Resolved Problems Problem Noted Date Diagnosed Date Resolved Date Body mass index (BMI) of 40. 0 to 44.9 in adult 02/13/2020 08/14/2020 Overview: Per Obesity protocol documented as of this encounter (statuses as of 08/05/2023) Immunizations Name Administration Dates Next Due COVID-19 [...] Date Recorded PHQ Adult Total Score 0 08/07/2022 Hunger Vital Sign Answer Date Recorded Within the past 12 months, y ou worried that your food would run out before you got the money to buy more. Never true 06/12/19 23 Within the past 12 months, t he food you bought just didn't last and you didn't have money to get more. Never true 06/11/2022 Sex and Gender Information Value Date Recorded Sex Assigned at Female 06/11/2022 11:59 AM EST Gender Identity Female 06/11/2022 11:59 AM EST Sexual Orientation Straight 06/11/2022 11 :59 AM EST Job Start Date Occupation Industry Not on file Not on file Not on file documented as of this encounter Last Filed Vital Signs Vital Sign Reading Time Taken Comments Blood Pressure 122/78 08/05/2023 10:39 AM EDT Pulse 75 08/05/2023 10:39 AM EDT Temperature 36.4 C (97.5 F) 08/05/2023 1 0:39 AM EDT Respiratory Rate 12 08/05/2023 10:3 9 AM EDT Oxygen Saturation 97% 08/05/2023 10: 39 AM EDT Inhaled Oxygen Concentration - - Weight 109.1 kg (240 lb 9.6 oz) 024 10:39 AM EDT Height 163.8 cm (5' 4.49") 08/05/2023 1 0:39 AM EDT Body Mass Index 40.68 08/05/2023 10:39 AM EDT documented in this encounter Patient Instructions * Patient Instructions* Jeana Hester LPN - 08/05/2023 10:38 AM EDT Patient Instructions - Fall Prevention (This education is for all patients over 65 regardless of symptoms) Remember to take your current medications as prescribed. In order to prevent falls, you are encouraged to: Exercise Utilize assistive/adaptive devices Avoid multifocal lenses when walking Avoid hazards in home Maintain a regular toileting schedule Any questions please contact our office. Preventing Falls in the Home (This education is for all patients over 65 regardless of symptoms) As you get older, falls are more likely. Thats because your reaction time slows. Your muscles and joints may also get stiffer, making them less flexible. Illness, medications, and vision changes can also affect your balance. A fall could leave you unable to live on your own. To make your home safer, follow these tips: Floors Put nonskid pads under area rugs Remove throw rugs Replace worn floor coverings Tack carpets firmly to each step on carpeted stairs. Put nonskid strips on the edges of uncarpeted stairs Keep floors and stairs free of clutter and cords Arrange furniture so there are clear pathways Clean up any spills right away Bathrooms Install grab bars in the tub or shower Apply nonskid strips or put a nonskid rubber mat in the tub or shower Sit on a bath chair to bathe Use bathmats with nonskid backing Lighting Keep a flashlight in each room Put a nightlight along the pathway between the bedroom and the bathroom Tito Patient Education Copyright 2008 - 2010 Tito except where otherwise noted Preventing Falls: Exercises to Improve Balance, Flexibility, Strength, and Staying Power (This education is for all patients over 65 regardless of symptoms) Certain types of exercises may help make you less likely to fall. Try the ones below. Or do other exercises that your healthcare provider suggests. Depending on your health, you may need to start slowly. Dont let that stop you. Even small amounts of exercise can help you. Be sure to talk to yourhealthcare provider before starting any exercise program. Improve Balance Many types of exercise can help improve balance. Deangelo chi and yoga are good examples. Heres another one to try. You can do it anytime and almost anywhere. Stand next to a counter or solid support. Push yourself up onto your tiptoes. Hold for 5 seconds. If you start to lose your balance, hold on to the counter. Rest and repeat 5 times. Work up to holding for 20 to 30 seconds, if you can. Increase Flexibility Being more flexible makes it easier for you to move around safely. Try exercises like the seated hamstring stretch. Sit in a chair and put one foot on a stool. Straighten your leg and reach with both hands down either side of your leg. Reach as far down your leg as you can. Hold for about 20 seconds. Go back to the starting position. Then repeat 5 times. Switch legs. Build Strength Resistance exercises help build strength. You can do them without equipment. Or you can use weights, elastic bands, or special machines. One such exercise is called the biceps curl. You can hold a 1 pound weight or even a can of soup. Do this exercise at least 3 times a week. Strive for everyday. Sit up straight in a chair. Keep your elbow close to your body and your wrist straight. Bend your arm, moving your hand up to your shoulder. Then slowly lower your arm. Repeat 5 times. Switch to the other arm. Build Your Staying Power Aerobic exercises make your heart and lungs stronger so you can keep moving longer. Walking and swimming are two of the best types of exercises you can do. Using a stationary bike is great, too. Find an aerobic exercise that you enjoy. Start slowly and build up. Even 5 minutes is helpful. Aimfor a goal of 30 minutes, at least 3 times a week. You dont have to do 30 minutes in one session. Break it up and walk a little throughout the day. More Helpful Tips Start easy. Slowly work up to doing more. Talk with your healthcare provider about the best exercises for you. Call senior centers or health clubs about exercise programs. If needed, have a family member watch you walk every so often to check your stability. Exercise with a friend. Choose an activity you both enjoy. Try exercises that you can do anytime, anywhere. Here are two examples. Have someone with you when you first try these: Practice walking by placing one foot right in front of the other. Stand up and sit down 10 times. Repeat this throughout the day. Tito Patient Education Copyright 2008 - 2010 Tito except where otherwise noted. Preventing Falls: Moving Safely Using a Cane or Walker (This education is for all patients over 65 regardless of symptoms) Keep the cane away from your feet so you dont trip. A walking aid, such as a cane or walker, can help you stay more independent and avoid falls. Remember to keep your walking aid within easy reach when youre in a chair or in bed. And learn how to use it safely so you dont injure yourself. Using a Cane If you have a stronger side, hold the cane on that side. Get your balance. Move the cane and your weaker leg forward. Support your weight on both the cane and your weaker side. Step with your stronger leg. Start again from step 1. If youre using a folding walker, be sure you know how to lock it open. Check that its locked open before each use. Using a Walker Roll the walker (or lift it, if youre using one without wheels) forward about 12 inches. Step forward with your weaker leg first. Use the walker to help keep your balance. Bring your other foot forward to the center of the walker. Start again from step 1. Helpful Tips Check with your healthcare provider about the right walking aid to use. Ask about a walker with a seat attached. Check the tips of your cane or walker to make sure they have nonskid covers. Move slowly from room to room. Dont davila. Sit down to get dressed. Use a reece pack or backpack to keep your hands free. Get help for jobs that mean climbing, even on a stepstool. Tito Patient Education Copyright 2008 - 2010 Tito except where otherwise noted. Urinary Incontinence Plan of Care Documentation: (This education is for all patients over 65 regardless of symptoms) Current medications reconciled. Patient encouraged to: Practice kegal exercises Provide education materials Use the restroom every 2 hours throughout the day Limit caffeine, alcohol, spicy foods and acidic foods Keep a bladder diary Limit fluid intake 3-4 hours before bed Lose weight Prevent constipation Take fluid pills at a time when you can get to the bathroom quickly Control sugar better if diabetic Limit fluid intake to 60 oz. per day Wear support stockings (TEDs)if you have edema Jeana Hester LPN 08/05/2023 Kegel Exercises Kegel exercises dont require special clothing or equipment. Theyre easy to learn and simple to do. And if you do them right, no one can tell youre doing them, so they can be done almost anywhere. Your doctor, nurse, or physical therapist can answer any questions you have and help you get started. A Weak Pelvic Floor The pelvic floor muscles may weaken due to aging, and vaginal childbirth, injury, surgery, chronic cough, or lack of exercise. If the pelvic floor is weak, your bladder and other pelvic organs may sag out of place. The urethra may also open too easily and allow urine to leak out. Kegel exercises can help you strengthen your pelvic floor muscles so they can better support the pelvic organs and control urine flow. How Kegel Exercises Are Done Try each of the Kegel exercises described below. When youre doing them, try not to move your leg, buttock, or stomach muscles. While youre urinating, try to stop the flow of urine. Start and stop it as often as you can. Contract as if you were stopping your urine stream, but do it when youre not urinating. Tighten your rectum as if trying not to pass gas. Contract your anus, but dont move your buttocks. Helpful Hints Do your Kegels as often as you can. The more you do them, the faster youll feel the results. Pick an activity you do often as a reminder. For instance, do your Kegels every time you sit down. Tighten your pelvic floor before you sneeze, get up from a chair, cough, laugh, or lift. This protects your pelvic floor from injury and can help prevent urine leakage. Try to hold each Kegel for a slow count to five. You probably wont be able to hold them for thatlong at first, but keep practicing. It will get easier as your pelvic floor gets stronger. Eventually, special weights that you place in your vagina may be recommended to help make your Kegels even more effective. Tito Patient Education Copyright 2009 - 2011 Tito except where otherwise noted. Here are some helpful tips for your urinary incontinence: (This education is for all patients over 65 regardless of symptoms) Practice Kegel exercises Use the restroom every 2 hours throughout the day Limit caffeine, alcohol, spicy foods, and acidic foods Keep a bladder diary Limit fluid intake 3-4 hours before bed Lose weight Prevent constipation Take fluid pills at a time when can get to the bathroom quickly Control sugar better if diabetic Limit fluid intake to 60 oz. per day Any questions, please feel free to contact our office. documented in this encounter Progress Notes * Shilpa De Luna CRNP - 08/05/2023 10:49 AM EDT Subjective Breana Gasca is a 67 year old female. Chief Complaint Patient presents with Physical-Exam HPI: Breana presents for routine exam. History of HTN, CAD with stent in 2019, sarcoidosis, sleep apnea, and recurrent UTI. HTN managed on losartan and recently Maxzide added for BP and lower extremity edema. CAD managed on atorvastatin, ezetimibe, aspirin, metoprolol. Follows with cardiology. No lightheadedness, chest pain or shortness of breath. Sleep apnea, follows with pulmonary. No pulmonary changes. MATTHEW managed on sertraline. Requesting refill ativan as needed. 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 She's scheduled for right knee replacement at [facility] 08/13 Last mammogram 02/25/2023 negative, repeat in 1 year Last colonoscopy 2020 negative, repeat in 10 years. 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 Encounter for gynecological examination with abnormal finding Z01.411 Sarcoidosis D86.9 Lichen sclerosus L90.0 Rosacea L71.9 Fatty liver K76.0 MATTHEW (generalized anxiety disorder) F41.1 DAMON on CPAP G47.33 Atherosclerosis of [place] coronary artery of [place] heart without angina pectoris I25.10 Prediabetes R73.03 PVC (premature ventricular contraction) I49.3 History of actinic keratoses Z87.2 Class 3 severe obesity due to excess calories without serious comorbidity with body mass index (BMI) of 40.0 to 44.9 in adult ([facility]) E66.01, Z68.41 Atherosclerotic heart disease of [place] coronary artery with other forms of angina pectoris ([facility]) I25.118 Gastroesophageal reflux disease K21.9 Post-menopausal Z78.0 Sarcoidosis of lung with sarcoidosis of lymph nodes ([facility]) D86.2 Current Outpatient Medications Medication Sig Dispense Refill Cholecalciferol (VITAMIN D) 1000 UNITS Tablet Take 1 Tablet by mouth in the morning. fexofenadine (MARIAN) 180 MG Tablet Take 1 Tablet by mouth in the morning. Aspirin 81 MG Tablet Take 1 Tab by mouth daily. 34 Tab 5 Vitamin C 500 MG Oral Tablet Chewable Take 1 Tablet by mouth in the morning. Calcium 150 MG Oral Tablet Take 4 Tablets by mouth in the morning. CPAP every night at bedtime. Zinc 25 MG Oral Tablet Take 1 Tablet by mouth in the morning. Nystatin-Triamcinolone 294838-5.1 UNIT/GM-% External Cream (Mycolog) Probiotic Product Oral Capsule Take 1 Capsule by mouth in the morning. D-Mannose 350 MG Oral Capsule Take 1 Capsule by mouth in the morning and 1 Capsule before bedtime. Clobetasol Propionate 0.05 % External Cream (Temovate) Apply topically to affected area 2 times a day. To affected area for up to two weeks. 15 g 1 Losartan Potassium 25 MG Oral Tablet (Cozaar) TAKE 1 TABLET BY MOUTH IN THE MORNING 90 Tablet 3 Metoprolol Succinate ER 25 MG Oral Tablet Extended Release 24 Hour (toPROL XL) TAKE 1 TABLET BY MOUTH DAILY 90 Tablet 3 Pantoprazole Sodium 40 MG Oral Tablet Delayed Release (Protonix) TAKE 1 TABLET BY MOUTH DAILY 90 Tablet 3 Diclofenac Sodium 1 % External Gel (Voltaren) Apply topically to affected area 4 times a day. Applyto tender areas right knee 150 g 6 Xiidra 5 % Ophthalmic Solution Instill 0.2 [...] Thursday,Thursday, and Thursday only. 15 Tablet 5 Cephalexin 500 MG Oral Capsule (Keflex) Take 1 Capsule by mouth in the morning and 1 Capsule beforebedtime. Do all this for 10 days. Until gone.. 20 Capsule 0 Estradiol 0.1 MG/GM Vaginal Cream (Estrace) Apply pea sized amount (0.5 gm) vaginally twice a week at bedtime 42.5 g 3 Nitroglycerin 0.4 MG Sublingual Tablet Sublingual (Nitrostat) Place under the tongue 1 Tablet every5 minutes as needed for Pain, Chest. Up to 3 in 15 minutes. (Patient not taking: Reported on 02/19/2023) 25 Tablet 11 Ondansetron 4 MG Oral Tablet Disintegrating (Zofran) Place 1 Tablet on tongue every 8 hours as needed for Nausea. dissolve on tongue. (Patient not taking: Reported on 07/24/2023) 20 Tablet 0 No current facility-administered medications for this visit. Review of patient's allergies indicates: Allergen Reactions Keflex [Cephalexin] Hives Currently taking keflex and tolerating it. ROS: PER HPI Objective BP 122/78 (BP Site: Left Arm, BP Position: Sitting, BP Cuff Size: Regular) | Pulse 75 | Temp 36.4 C (97.5 F) (Tympanic) | Resp 12 | Ht 1.638 m (5' 4.49") | Wt 109.1 kg (240 lb 9.6 oz) | SpO2 97% | BMI 40.68 kg/m | BSA 2.23 m Constitutional: Patient appears well and in no acute distress. Skin: bug bites around neck/chest Head: Normocephalic. Eyes: Conjunctive and sclera are clear and non-icteric. Pupils are equally round and extra ocular movements intact. Neck: Neck is supple. There is no cervical or supraclavicular adenopathy is noted. Pulm: Unlabored, Clear to auscultate. CVS: Heart rate and rhythm regular, without murmur, rub or gallop. GI: Abdomen is soft, non-tender, with normoactive bowel sounds in all four quadrants. No hepatosplenomegaly is appreciated. No masses are palpated, No guarding or rebound is noted. Extremities: No edema, clubbing or cyanosis. Musculoskeletal: No joint swelling or tenderness. PILE TRIMMER: Alert, awake or oriented x 3. ASSESSMENT/PLAN: Routine medical exam (Primary) HTN, goal below 140/90 Coronary artery disease involving [place] coronary artery of [place] heart without angina pectoris H/O heart artery stent Sarcoidosis of lung with sarcoidosis of lymph nodes (HCC) DAMON on CPAP Prediabetes MATTHEW (generalized anxiety disorder) - LORazepam 0.5 MG Oral Tablet (Ativan); Take 1 Tablet by mouth every 6 hours as needed for Anxiety. Class 3 severe obesity due to excess calories without serious comorbidity with body mass index (BMI) of 40.0 to 44.9 in adult (HCC) Continue routine medication as prescribed. Next visit discuss updating dexa scan. PRIYA Keller * Jeana Hester LPN - 08/05/2023 10:38 AM EDT Urinary Incontinence Plan of Care Documentation: (This education is for all patients over 65 regardless of symptoms) Current medications reconciled. Patient encouraged to: Practice kegal exercises Provide education materials Use the restroom every 2 hours throughout the day Limit caffeine, alcohol, spicy foods and acidic foods Keep a bladder diary Limit fluid intake 3-4 hours before bed Lose weight Prevent constipation Take fluid pills at a time when you can get to the bathroom quickly Control sugar better if diabetic Limit fluid intake to 60 oz. per day Wear support stockings (TEDs)if you have edema Jeana Hester LPN 08/05/2023 documented in this encounter Nursing Notes * Jeana Hester LPN - 08/05/2023 10:32 AM EDT The patient has been properly identified by confirmation of name and date of . Chief Complaint Patient presents with Physical-Exam Patient is here for a yearly physical. C/O of rash under chin and neck. Patient also mentioned she is having total knee replacement on 08/13 documented in this encounter Plan of Treatment Upcoming Encounters Date Type Department Care Team (Late st Contact Info) Description 09/07/2023 8:00 AM EDT Telemedicine Urogynecology [facility] [address] [address] Gómez Becker MD [address] [place] [address] 12/22/2023 10:00 AM EDT Office Visit Family Practice, [facility] [address] [place] [address] Shilpa De Luna CRNP [address] [place] [address] 02/01/2024 9:30 AM EDT Office Visit Cardiology, [facility] [address] [place] [address] Shawn Michelle PA-C [address] [place] [address] 04/04/2024 2:00 PM EST Office Visit Dermatology [facility] [address] [facility] [place] [address] Kendall Bhakta MD [address] [facility] [place] [address] Health Maintenance Due Date Last Done Comments [...] as of this encounter Visit Diagnoses Diagnosis Routine medical exam- Primary Routine general medical examination at a health care facility HTN, goal below 140/90 Unspecified essential hypertension Coronary artery disease involving [place] coronary artery of [place] heart without angina pectoris H/O heart artery stent Postsurgical percutaneous transluminal coronary angioplasty status 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 No Care Teams Director Workers Compensation Relationship Specialty Start Date End Date Shilpa De Luna CRNP [address] [place] [address] PCP - General Nurse Practitioner 08/05/23 documented as of this encounter
--- NOTE | 2023-08-29 07:57 | Orthopedic Progress Note ---
Date of Service August 29, 2023 Assessment & Plan (1) Status post right knee replacement: Overall she is doing very well. She is not having much pain in the right knee. She will be seen by physical therapy today for ambulation and range of motion exercises. The nursing staff can change her dressing after physical therapy. She is on aspirin for DVT prophylaxis. She can be discharged home later today. She will follow-up orthopedics in 2 weeks. Sergio Toussaint was seen and examined at bedside this morning. Overall she is doing very well. She is not having much pain in the right knee. She has been up ambulating to the bathroom. She is no complaints.. Review of Systems All systems reviewed & are unremarkable except as noted in HPI & below. Physical Exam On physical examination of the right knee, the dressing is clean and dry. Her leg is out full extension. She has active dorsiflexion plantarflexion of her right ankle.. Results & Data Results & Data Laboratory Results . Diagnostic Findings Postoperative x-rays of the right knee show the prosthesis to be in anatomic alignment without any evidence of fracture, desiccation, or loosening.. PG Care Time/CCT Total # of Minutes Spent Total Time Spent with Patient: Total time spent is greater than 50% in coordination of care (as documented) at patient's floor/unit and/or counseling patient: Coding Level of Care Code 43338 Post Operative Follow-Up Diagnoses Status post right knee replacement Z96.651
--- NOTE | 2023-08-29 07:58 | Discharge Summary ---
Date of Service August 29, 2023 Admission HPI (Per Admitting) Breana is a pleasant 67-year-old female who has been dealing with chronic increasing right knee pain. It mostly hurts on the lateral aspect of her knee. She has done extensive conservative management. She has done multiple bouts of physical therapy. She has had multiple injections. She continues to deal with lot of knee pain. She cannot live with it the way it is any longer. X-rays and clinical examination have been diagnostic for advanced arthritis of the right knee. After failed conservative treatment, she has elected proceed with a right total knee arthroplasty. Admission Exam (Per Admitting) On physical examination of the right knee, she has slight valgus deformity. She has tenderness palpation of the distal lateral femoral condyle and over the lateral joint line.. Principal Diagnosis Same as "Discharge Diagnosis" noted below under Discharge Instructions. Discharge Exam On physical examination of the right knee, the dressing is clean and dry. Her leg is out full extension. She has active dorsiflexion plantarflexion of her right ankle.. Discharge Data Procedures Performed Operation Date: 08/28/23 08:00 Actual Procedures p Right Total Knee Arthroplasty(Right) - Endy Smith DO Ordered Studies 08/28/23 05:00 US - OR guided needle placemen Routine Hospital Course (1) Status post right knee replacement: On August 28, 2023 Breana arrived at [facility] and underwent a right knee replacement without complication. She had a spinal anesthetic. Postoperatively she was started on aspirin for DVT prophylaxis and transferred to the general orthopedic floors. Her hospital course was uneventful. On postop day #1, her vital signs were stable and her pain was well-controlled. She was able to participate well with physical therapy doing ambulation and range of motion exercises. She was then discharged home. She will follow-up with orthopedics in 2 weeks. PG Care Time/CCT Total # of Minutes Spent Total Time Spent with Patient: Total time spent is greater than 50% in coordination of care (as documented) at patient's floor/unit and/or counseling patient: Discharge Plan Discharge Items Patient Disposition: Home - Self-Care Reason For Visit: DJD Knee Right Discharge Diagnosis: Right knee replacement Activity: As commented below Non-emergency contact: Surgeon Call non-emergency contact if: your wound has increased redness and your wound has increased drainage Follow-up/Referrals: Emilee Hernandez MD [Primary Care Provider] - Diet: Regular Addtl Attending Provider Instructions: Activity and Therapy Recommendations: * If you are using [facility] then therapy will be provided at your home until they feel you have accomplished all of your goals. * If you are using [facility] then Physical Therapy will be provided until they feel you are ready to start Outpatient Physical Therapy. * If you are not using home therapy then Outpatient Physical Therapy should start about 3-5 days from your day of surgery. Therapy will last about 6-10 weeks * It is important not to put a pillow under your knee when you are relaxing or sleeping. It is just as important to make sure you are getting your knee perfectly straight as it is to regain your knee bend. * You were shown a series of exercises in the hospital. Do these exercises three times each day including the exercises you were shown in physical therapy. * Get up and walk several times each day. For the first four weeks, try not to stand or walk for more than one hour at a time. If you do stand or walk for more than one hour, you will not hurt anything, but your leg will likely swell. * As you feel comfortable, you may change from the walker or crutches to a cane and then to independent walking. Medications: * Narcotic You will likely be sent home from the hospital with a prescription for the narcotic pain medication that worked best throughout your stay. * Cefadroxil -take the antibiotic twice a day for 10 days to prevent infection. * Aspirin Most patients will be required to take Aspirin 81mg twice a day for 6 weeks after surgery. This is obtained [id number] and a prescription is not necessary. * Other medications may be prescribed for specific circumstances. If you have any questions, please call the office at . * Resume previous home medications unless otherwise instructed TEDs/Elastic Stockings: The white elastic stockings help limit swelling and prevent blood clots from forming in your legs.~ The more you wear them, the more they work. Wear them for six weeks. Dressing Care: The dressing can be changed after physical therapy on postop day #1. Daily dry dressing changes for a few days, especially if the incision is still draining some. If the incision is not draining then you may leave the dona open to air. If there is a little bit of drainage or if the dona are getting stuck on your clothing then cover the incision with a dry dressing. The dona will be removed at your 2 week follow-up appointment. Showering: You may shower 5 days from the day of surgery as long as the incision is no longer draining. You may shower with the dona exposed. Let soapy water run over the dona and pat them dry. Do not scrub or soak the incision. Things To Watch For: * Drainage from the incision site that occurs more than one week after your surgery. * Increased redness at the incision site. * Fever above 102 degrees Fahrenheit. * Unusual chest pain or shortness of breath. * Call [facility] at with any of the above problems Follow-Up Visit: Follow-up with Dr. Smith's PA (Endy Michael) 2-3 weeks after your day of surgery. He will remove your dona and answer any questions. If you have any additional questions or concerns, Dr Smith is usually in the office at the same time and will be available An appointment was probably scheduled when you signed-up for surgery in the office. If you have any questions call Office Instructions: More detailed instructions as well as Frequently Asked Questions were provided in a folder by our office when you signed-up for surgery. Please review these instructions when you get home. If you have any further questions or concerns, please feel free to call the office at [phone] Pending Studies at Discharge: No Stand-Alone Forms: My [facility], Smoking Cessation Medications and DC Order Prescriptions: New oxycodone 5 mg Tablet 5 mg PO Q4H PRN (Reason: pain) Qty: 30 0RF cefadroxil 500 mg capsule 500 mg PO BID 10 Days Qty: 20 0RF Continued lorazepam 0.5 mg Tablet 0.5 mg PO TID PRN (Reason: Anxiety) fexofenadine [Beverley Allergy] 180 mg Tablet 180 mg PO DAILY sertraline [Zoloft] 25 mg Tablet 50 mg PO QAM atorvastatin [Lipitor] 40 mg Tablet 2 tab PO QAM metoprolol succinate [Toprol XL] 25 mg Tablet Extended Release 24 Hr 1 tab PO QPM pantoprazole 40 mg Tablet,Delayed Release (Dr/Ec) 40 mg PO QAM Qty: 30 5RF losartan 25 mg Tablet 25 mg PO QAM triamterene-hydrochlorothiazid 37.5-25 mg Tablet 1 tab PO UD Rx Instructions: Mon-Wed-Thu Calcium 600 + D(3) 600-125 mg-unit Tablet 1 tab PO QAM estradiol 0.01 % (0.1 mg/gram) cream 1 applic VAGINAL UD Rx Instructions: every ther day ezetimibe [Zetia] 10 mg Tablet 10 mg PO QPM vitamin P96-ikxac acid 500-400 mcg Tablet 1 tab PO QAM Rx Instructions: administer with a meal Xiidra 5 % Dropperette 1 drp OPHTHALMIC (EYE) BID Rx Instructions: administer approximately 12 hours apart d-mannose 500 mg Capsule 1,000 mg PO BID Women's Probiotic 25B cell-25B cell-50 mg Capsule 1 cap PO QAM trimethoprim 100 mg tablet 100 mg PO QPM Changed aspirin 81 mg Tablet,Chewable 1 tab PO BID 42 Days Qty: 0 0RF Discharge Orders: Discharge Order (Routine); Ordered 08/29/23 Ordered By: Endy Smith Admission Data Admit Date/Time: 08/28/23 09:36 Attending Provider: Endy Smith Admit Provider: Endy Smith Primary Care Provider: Emilee Hernandez
[2023-08-29] MEDS: FEXOFENADINE HCL 180 MG TAB PO SCH (08:12)
[2023-08-29] MEDS: ATORVASTATIN 40 MG TAB PO SCH (08:13)
[2023-08-29] MEDS: LOSARTAN POTASSIUM 25 MG TAB PO SCH (08:13)
[2023-08-29] MEDS: MULTIVITAMIN TAB PO SCH (08:13)
[2023-08-29] MEDS: SERTRALINE HCL 50 MG TABLET PO SCH (08:13)
[2023-08-29] MEDS: PANTOprazole 40 MG TAB PO SCH (08:13)
[2023-08-29] MEDS: FOLIC ACID 400 MCG TAB PO SCH (08:14)
[2023-08-29] MEDS: CYANOCOBALAMIN (B-12) 500 MCG TABLET PO SCH (08:14)
[2023-08-29] MEDS: oxyCODONE HCL IR 5 MG TAB (IMMEDIATE RELEASE) PO PRN (08:25)
[2023-08-29] MEDS ORDERED: NON-FORMULARY MEDICATION (Vitamin B12-Folic Acid 500-400 mcg Tablet) PO SCH (09:00)
[2023-08-29] MEDS: dexAMETHasone 4 MG TAB PO SCH (09:24)
== END 2023-08-29 11:45 | disposition home or self-care (01) ==
LOC: PACUINP 06:28 → ASU 06:28 → 3N 13:44